=== PATIENT | female | born 1940 | race Caucasian/White ===

== ENCOUNTER 2025-02-08 15:02 | Outpatient (AMB) | payer MEDICARE, SELFPAY ==
--- NOTE | 2025-02-08 15:04 | A.OFFVIS_ITS ---
Intake Visit Reasons: ENP-Cerebrovascular Accident HPI Comments Details: The patient is an 84-year-old female presenting with a cerebrovascular accident experienced in September 2024 when she suffered a blackout followed by left-sided weakness. After admission and treatment at [facility], she underwent rehabilitation. She continues to suffer from left-sided weakness and altered sensation. Chronic back pain, exacerbated by existing compression fractures, complicates her ambulation and necessitates the use of a walker. Neurologically, the patient reports memory difficulties since the stroke, primarily involving word-finding and recalling sentences. Her memory eventually recovers with effort, and she denies significant changes in personality or incontinence. Review of Systems Narrative - Neurologic: Reports sudden vision blackout at stroke onset, left-sided weakness and sensory change, memory difficulties specifically with word retrieval and sentence recall, previous inability to use a cane for ambulation. - Musculoskeletal: Reports chronic back pain due to compression fractures, difficulty ambulating. - Genitourinary: Denies issues with bladder control. - Cognitive: Reports memory impairment since the stroke, no significant personality changes. Physical Exam Neuro Other: Mental Status: Alert and oriented to person, place, and time. Normal attention. Normal spontaneous speech, fluency, and comprehension. Cranial Nerves: CN II: Visual dean full to confrontation, visual acuity intact. CN III, IV, : Pupils equal, round, reactive to light and accommodation. Extraocular movements are normal. CN V: Facial sensation is normal. CN VII: Facial movements symmetrical. CN VIII: Hearing intact to bedside conversation is normal. CN IX, X: Palate elevates symmetrically. CN XI: Shoulder shrug and head turn symmetrical. CN XII: Tongue midline without atrophy or fasciculations. Motor: Walking with a walker. Extrapyramidal: Full facial expressions and blinking. No rigidity. Movements are appropriate with no tremor or abnormality. Speech: Normal; no dysarthria or tremor. Assessment & Plan Assessment & Plan (1) Cerebral infarction: Comment: MRI brain WO at [facility] in September 2024: Small R post limb of IC acute ischemic infarct, mild to mod chronic MVD, mod severe atrophy more pronounced in frontotemporal areas CTA brain and neck at [facility] in September 2024: R V4 occlusion, high grade left M2 and left A2 Code(s): I63.9 - Cerebral infarction, unspecified Category: Medical Qualifiers: Cerebral infarction mechanism: thrombosis Precerebral and cerebral artery: unspecified cerebral artery Qualified Code(s): I63.30 - Cerebral infarction due to thrombosis of unspecified cerebral artery (2) Intracranial atherosclerosis: Code(s): I67.2 - Cerebral atherosclerosis Category: Medical (3) Multifactorial dementia: Code(s): F03.90 - Unspecified dementia, unspecified severity, without behavioral disturbance, psychotic disturbance, mood disturbance, and anxiety Category: Medical (4) Multifactorial gait disorder: Code(s): R26.89 - Other abnormalities of gait and mobility Category: Medical Plan 84 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 Her imaging also revealed [id number] similar chronic microvascular ischemic changes bilaterally, and significant cortical atrophy more pronounced in frontotemporal areas. This kind of pathology would typically result in physical and cognitive difficulties, which she was experiencing. Mainstay of management is control of blood pressure, anti- platelet agent like baby aspirin, statin, and blood pressure control. I would noted that she was taking both aspirin 81 mg daily and clopidogrel. One of them can be stopped. She should continue to use a walker. There was no specific treatment for this type of cognitive difficulties. Typically use medicines like donepezil or memantine seem not to make any difference. 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
--- OUTSIDE RECORDS SUMMARY | 2025-02-08 16:25 | XMS_ITS | Encounter Summary ---
Author Organization [facility] Address [address] [place] [address] Care Team Providers Care Plant Security Guard Name Role Phone Nicolasa Guo MD Primary Care Provider [phone] Encounter Details Date Type Department Care Team (Late Contact Info) Description 10/19/2024 Lab Requisition [facility] - Main Lab [address] [facility] [place] [phone] Yobani Chapa MD [address] [place] [address] Weakness; Chronic obstructive pulmonary disease, unspecified (CMS/HCC V24, CMS/HCC V28) Social History Tobacco Use Types Packs/Day Years Used Date Smoking Tobacco: Every Day Smokeless Tobacco: Never Alcohol Use Standard Drinks/Week Comments No 0 (1 standard drink = 0.6 oz pur e alcohol) Interpersonal Safety Answer Date Record ed Physical Abuse Unrecognized value 10/03/2024 Verbal Abuse Unrecognized value 10/03/2024 Comments Unknown Sex and Gender Information Value Date Recorded Sex Assigned at Female 10/22/2024 9:59 AM EDT Legal Sex Female 11:59 AM EST Gender Identity Female 10/22/2024 9:59 AM EDT Sexual Orientation Straight 10/22/2024 9: 59 AM EDT documented as of this encounter Plan of Treatment Upcoming Encounters Date Type Department Care Team (Late Contact Info) Description 02/11/2025 1:30 PM EST Office Visit Internal Medicine - [place] [address] [facility] [address] [place] [address] Nicolasa Guo MD [address] [place] [phone] 04/27/2025 3:30 PM EST [facility] [address] [place] [address] Austin Johnson MD [address] [place] [address] 09/28/2025 10:15 AM EDT Office Visit [facility] Hematology Oncology [address] [place] [phone] Izabela Tam MD [address] [place] [address] 01/18/2026 10:45 AM EDT Office Visit Pulmonology - [place] [address] [facility] [address] [place] [phone] Roderick Lyman MD [address] [place] [phone] documented as of this encounter Procedures Procedure Name Priority Date/Time Associated Diagnosis Comments COMPLETE BLOOD COUNT Routine 10/19/2024 6:50 AM EDT Weakness Chronic obstructive pulmonary disease, unspecified ([facility] V24, [facility] V28) BASIC METABOLIC PANEL Routine 10/19/2024 6:50 AM EDT Weakness Chronic obstructive pulmonary disease, unspecified (CMS/HCC V24, CMS/HCC V28) documented in this encounter Results * (ABNORMAL) Basic metabolic panel (10/19/2024 6:50 AM EDT) Sodium 139 133 - 145 mmol/L LAB CHEMISTRY METHOD 10/19/2024 4:41 PM EDT [facility] Potassium 3.0(L) 3.5 - 5.5 mmol/L LAB CHEMISTRY METHOD 10/19/2024 4:41 PM [facility] Chloride 104 96 - 110 mmol/L LAB CHEMISTRY METHOD 10/19/2024 4:41 PM [facility] CO2 27 21 - 32 mmol/L LAB CHEMISTRY METHOD 10/19/2024 4:41 PM [facility] Anion Gap 8 3 - 11 LAB CHEMISTRY METHOD 10/19/2024 4:41 PM [facility] Glucose 73 70 - 100 mg/dL LAB CHEMISTRY METHOD 10/19/2024 4:41 PM [facility] BUN 20 5 - 25 mg/dL LAB CHEMISTRY METHOD 10/19/2024 4:41 PM [facility] Creatinine 0.53 0.50 - 1.10 mg/dL LAB CHEMISTRY METHOD 10/19/2024 4:41 PM [facility] eGFR 91 >=60 mL/min/1. 73m2 LAB CHEMISTRY METHOD 10/19/2024 4:41 PM [facility] Comment:Calculation based on the Chronic Kidney Disease Epidemiology Collaboration (CKD-EPI) equation refit without adjustment for race. BUN/Creatinine Ratio 37.7 LAB CHEMISTRY METHOD 10/19/2024 4:41 PM [facility] Calcium 8.6 8.5 - 10.5 mg/dL LAB CHEMISTRY METHOD 10/19/2024 4:41 PM [facility] Blood Venous blood specimen / Unknown Venipuncture / Unknown 10/19/2024 6:50 AM EDT 10/19/2024 10:14 AM EDT us Yobani Chapa MD LAB BLOOD ORDERABLES Final Resul t [facility] [address] [place] [address], [place] [phone] * (ABNORMAL) Complete blood count (10/19/2024 6:50 AM EDT) [facility] WBC 9.7 4.8 - 10.8 K/mcL LAB HEMETOLOGY METHOD 10/[facility]24 [facility] RBC 3.60(L) 3.80 - 4.80 M/mcL LAB HEMETOLOGY METHOD 10/19/2024 10:54 AM EDT [facility] Hemoglobin 11.3(L) 11.5 - 16.0 g/dL LAB HEMETOLOGY METHOD 10/19/2024 10:54 AM [facility] Hematocrit 34.1(L) 35.0 - 47.0 % LAB HEMETOLOGY METHOD 10/19/2024 10:54 AM [facility] MCV 94.2 79.0 - 98.0 FL LAB HEMETOLOGY METHOD 10/19/2024 10:[facility] MCH 31.2 27.0 - 32.0 pcg LAB HEMETOLOGY METHOD 10/19/2024 10:54 AM [facility] MCHC 33.1 32.0 - 37.0 g/dL LAB HEMETOLOGY METHOD 10/19/2024 10:54 AM [facility] RDW 12.3 11.0 - 15.0 % LAB HEMETOLOGY METHOD 10/19/2024 10:54 AM [facility] Platelets 353 130 - 400 K/mcL LAB HEMETOLOGY METHOD 10/19/2024 10:54 AM T [facility] MPV 9.1 7.0 - 11.0 FL LAB HEMETOLOGY METHOD 10/19/2024 10:54 [facility] NRBC 0.0 <1.0 % LAB HEMETOLOGY METHOD 10/19/2024 10:54 AM EDT [facility] NRBC Absolute 0.00 <0.10 K/mcL LAB HEMETOLOGY METHOD 10/19/2024 10:54 AM EDT [facility] Blood Venous blood specimen / Unknown Venipuncture / Unknown 10/19/2024 6:50 AM EDT 10/19/2024 10:14 AM EDT us Yobani Chapa MD LAB BLOOD ORDERABLES Final Resul t [facility] [address] [place] [address], documented in this encounter Visit Diagnoses Diagnosis Weakness Other malaise and fatigue Chronic obstructive pulmonary disease, unspecified (CMS/HCC V24, CMS/HCC V28) documented in this encounter Care Teams Plant Security Guard Relationship Specialty Start Date End Date Nicolasa Guo MD [address] [place] [phone] PCP - General 08/14/23 documented as of this encounter
--- OUTSIDE RECORDS SUMMARY | 2025-02-08 16:25 | XMS_ITS | Encounter Summary ---
Author Organization [facility] Address [address] [place] [address] Care Team Providers Care Location Worker Name Role Phone Nicolasa Guo MD Primary Care Provider [phone] Encounter Details Date Type Department Care Team (Late Contact Info) Description 10/21/2024 Lab Requisition [facility] - Main Lab [address] [facility] [place] [address] Yobani Chapa MD [address] [facility] [address] [place], [place] [id number] Hypokalemia Social History Tobacco Use Types Packs/Day Years [...] PM EST Office Visit Internal Medicine - [place] [address] [facility] [address] [place] [phone] Nicolasa Guo MD [address] [place] [phone] 04/27/2025 3:30 PM EST Consult Nephrology - [facility] [address] [place] [address] Austin Johnson MD [address] [place] [phone] 09/28/2025 10:15 AM EDT Office Visit [facility] Hematology Oncology [address] [place] [phone] Izabela Tam MD [address] [place], [place] [phone] 01/18/2026 10:45 AM EDT Office Visit Pulmonology - [place] 175 [facility] 200 [place] [phone] Roderick Lyman MD [address] [place] [phone] documented as of this encounter Procedures Procedure Name Priority Date/Time Associated Diagnosis Comments BASIC METABOLIC PANEL Routine 10/21/2024 7:56 AM EDT Hypokalemia documented in this encounter Results * (ABNORMAL) Basic metabolic panel (10/21/2024 7:56 AM EDT) Sodium 139 133 - 145 mmol/L LAB CHEMISTRY METHOD 10/21/2024 11:50 AM EDT [facility] Potassium 3.4(L) 3.5 - 5.5 mmol/L LAB CHEMISTRY METHOD 10/21/2024 11:50 AM EDT [facility] Chloride 104 96 - 110 mmol/L LAB CHEMISTRY METHOD 10/21/2024 11:50 AM EDT [facility] CO2 22 21 - 32 mmol/L LAB CHEMISTRY METHOD 10/21/2024 11:50 AM [facility] Anion Gap 13(H) 3 - 11 LAB CHEMISTRY METHOD 10/21/2024 11:50 AM [facility] Glucose 74 70 - 100 mg/dL LAB CHEMISTRY METHOD 10/21/2024 11:50 AM [facility] BUN 14 5 - 25 mg/dL LAB CHEMISTRY METHOD 10/21/2024 11:50 AM [facility] Creatinine 0.63 0.50 - 1.10 mg/dL LAB CHEMISTRY METHOD 10/21/2024 11:50 AM [facility] eGFR 87 >=60 mL/min/1. 73m2 LAB CHEMISTRY METHOD 10/21/2024 11:50 AM [facility] Comment:Calculation based on the Chronic Kidney Disease Epidemiology Collaboration (CKD-EPI) equation refit without adjustment for race. BUN/Creatinine Ratio 22.2 LAB CHEMISTRY METHOD 10/21/2024 11:50 AM [facility] Calcium 9.2 8.5 - 10.5 mg/dL LAB CHEMISTRY METHOD 10/21/2024 11:50 AM [facility] Blood Venous blood specimen / Unknown Venipuncture / Unknown 10/21/2024 7:56 AM EDT 10/21/2024 9:31 AM EDT us Yobani Chapa MD LAB BLOOD ORDERABLES Final Resul t [facility] [address] [place] [address], documented in this encounter Visit Diagnoses Diagnosis Hypokalemia Hypopotassemia documented in this encounter Care Teams Location Worker Relationship Specialty Start Date End Date Nicolasa Guo MD [address] [facility] [address] [place] [phone] PCP - General 08/14/23 documented as of this encounter
--- OUTSIDE RECORDS SUMMARY | 2025-02-08 16:25 | XMS_ITS | Encounter Summary ---
Author Organization [facility] Address [address] [place] [address] Care Team Providers Care Register Of Deeds Name Role Phone Nicolasa Guo MD Primary Care Provider [phone] Encounter Details Date Type Department Care Team (Late Contact Info) Description 10/25/2024 Lab Requisition [facility] - Main Lab [address] [facility] [place] [phone] Yobani Chapa MD [address] [place] [address] Weakness; Chronic obstructive pulmonary disease, unspecified (CMS/HCC [...] PM EST Office Visit Internal Medicine - [place] [address] [facility] [address] [place] [address] Nicolasa Guo MD [address] [place] [phone] 04/27/2025 3:30 PM EST Consult Nephrology - [facility] [address] [place] [address] Austin Johnson MD [address] [facility] [address] [place] [address] 09/28/2025 10:15 AM EDT Office Visit [facility] Hematology Oncology [address] [place] [address] Izabela Tam MD [address] [place] [address] 01/18/2026 10:45 AM EDT Office Visit Pulmonology - [place] [address] [phone] Roderick Lyman MD [address] [place] [phone] documented as of this encounter Procedures Procedure Name Priority Date/Time Associated Diagnosis Comments COMPLETE BLOOD COUNT Routine 10/26/2024 6:59 AM EDT Weakness Chronic obstructive pulmonary disease, unspecified (CMS/HCC V24, CMS/HCC V28) COMPREHENSIVE METABOLIC PANEL Routine 10/26/2024 6:59 AM EDT Weakness Chronic obstructive pulmonary disease, unspecified (CMS/HCC V24, CMS/HCC V28) BASIC METABOLIC PANEL Routine 10/26/2024 6:59 AM EDT Weakness Chronic obstructive pulmonary disease, unspecified (CMS/HCC V24, CMS/HCC V28) documented in this encounter Results * (ABNORMAL) Comprehensive metabolic panel (10/26/2024 6:59 AM EDT) Sodium 138 133 - 145 mmol/L LAB CHEMISTRY METHOD 10/26/2024 12:04 PM [facility] Potassium 3.2(L) 3.5 - 5.5 mmol/L LAB CHEMISTRY METHOD 10/26/2024 12:04 PM [facility] Chloride 103 96 - 110 mmol/L LAB CHEMISTRY METHOD 10/26/2024 12:04 PM [facility] CO2 27 21 - 32 mmol/L LAB CHEMISTRY METHOD 10/26/2024 12:04 PM [facility] Anion Gap 8 3 - 11 LAB CHEMISTRY METHOD 10/26/2024 12:04 PM [facility] Glucose 78 70 - 100 mg/dL LAB CHEMISTRY METHOD 10/26/2024 12:04 PM [facility] BUN 12 5 - 25 mg/dL LAB CHEMISTRY METHOD 10/26/2024 12:04 PM [facility] Creatinine 0.68 0.50 - 1.10 mg/dL LAB CHEMISTRY METHOD 10/26/2024 12:04 PM [facility] eGFR 85 >=60 mL/min/1. 73m2 LAB CHEMISTRY METHOD 10/26/2024 12:04 PM [facility] Comment:Calculation based on the Chronic Kidney Disease Epidemiology Collaboration (CKD-EPI) equation refit without adjustment for race. BUN/Creatinine Ratio 17.6 LAB CHEMISTRY METHOD 10/26/2024 12:04 PM [facility] Calcium 8.8 8.5 - 10.5 mg/dL LAB CHEMISTRY METHOD 10/26/2024 12:04 PM [facility] AST (SGOT) 15 10 - 42 unit/L LAB CHEMISTRY METHOD 10/26/2024 12:04 PM [facility] ALT (SGPT) 17 10 - 60 unit/L LAB CHEMISTRY METHOD 10/26/2024 12:04 PM EDT [facility] Alkaline Phosphatase 121 42 - 121 unit/L LAB CHEMISTRY METHOD 10/26/2024 12:04 PM T [facility] Total Protein 6.3 6.0 - 8.0 g/dL LAB CHEMISTRY METHOD 10/26/2024 12:04 PM [facility] Albumin 3.7 3.2 - 5.0 g/dL LAB CHEMISTRY METHOD 10/26/2024 12:04 PM [facility] Total Bilirubin 0.6 0.0 - 1.4 mg/dL LAB CHEMISTRY METHOD 10/26/2024 12:04 PM [facility] Blood Venous blood specimen / Unknown Venipuncture / Unknown 10/26/2024 6:59 AM EDT 10/26/2024 9:56 AM EDT us Yobani Chapa MD LAB BLOOD ORDERABLES Final Resul t [facility] [address] [place] [address], * Complete blood count (10/26/2024 6:59 AM EDT) WBC 8.2 4.8 - 10.8 K/mcL LAB HEMETOLOGY METHOD 10/26/2024 10:40 AM EDT [facility] RBC 3.80 3.80 - 4.80 M/mcL LAB HEMETOLOGY METHOD 10/26/2024 10:40 AM T [facility] Hemoglobin 11.8 11.5 - 16.0 g/dL LAB HEMETOLOGY METHOD 10/26/2024 10:40 AM [facility] Hematocrit 36.0 35.0 - 47.0 % LAB HEMETOLOGY METHOD 10/26/2024 10:40 AM EDT [facility] MCV 94.2 79.0 - 98.0 FL LAB HEMETOLOGY METHOD 10/26/2024 10:40 AM EDT [facility] MCH 30.9 27.0 - 32.0 pcg LAB HEMETOLOGY METHOD 10/26/2024 10:40 AM EDT [facility] MCHC 32.8 32.0 - 37.0 g/dL LAB HEMETOLOGY METHOD 10/26/2024 10:40 AM EDT [facility] RDW 13.1 11.0 - 15.0 % LAB HEMETOLOGY METHOD 10/26/2024 10:40 AM EDT [facility] Platelets 314 130 - 400 K/mcL LAB HEMETOLOGY METHOD 10/26/2024 10:40 AM EDT [facility] MPV 9.5 7.0 - 11.0 FL LAB HEMETOLOGY METHOD 10/26/2024 10:40 AM EDT [facility] NRBC 0.0 <1.0 % LAB HEMETOLOGY METHOD 10/26/2024 10:40 AM EDT [facility] NRBC Absolute 0.00 <0.10 K/mcL LAB HEMETOLOGY METHOD 10/26/2024 10:40 AM T [facility] Blood Venous blood specimen / Unknown Venipuncture / Unknown 10/26/2024 6:59 AM EDT 10/26/2024 9:57 AM EDT us Yobani Chapa MD LAB BLOOD ORDERABLES Final Resul t [facility] [address] [place] [address], * (ABNORMAL) Basic metabolic panel (10/26/2024 6:59 AM EDT) Sodium 138 133 - 145 mmol/L LAB CHEMISTRY METHOD 10/26/2024 12:04 PM EDT [facility] Potassium 3.2(L) 3.5 - 5.5 mmol/L LAB CHEMISTRY METHOD 10/26/2024 12:04 PM [facility] Chloride 103 96 - 110 mmol/L LAB CHEMISTRY METHOD 10/26/2024 12:04 PM [facility] CO2 27 21 - 32 mmol/L LAB CHEMISTRY METHOD 10/26/2024 12:04 PM [facility] Anion Gap 8 3 - 11 LAB CHEMISTRY METHOD 10/26/2024 12:04 PM [facility] Glucose 78 70 - 100 mg/dL LAB CHEMISTRY METHOD 10/26/2024 12:04 PM [facility] BUN 12 5 - 25 mg/dL LAB CHEMISTRY METHOD 10/26/2024 12:04 PM [facility] Creatinine 0.68 0.50 - 1.10 mg/dL LAB CHEMISTRY METHOD 10/26/2024 12:04 PM [facility] eGFR 85 >=60 mL/min/1. 73m2 LAB CHEMISTRY METHOD 10/26/2024 12:04 PM [facility] Comment: Calculation based on the Chronic Kidney Disease Epidemiology Collaboration (CKD- EPI) equation refit without adjustment for race. Calculation based on the Chronic Kidney Disease Epidemiology Collaboration (CKD- EPI) equation refit without adjustment for race. BUN/Creatinine Ratio 17.6 LAB CHEMISTRY METHOD 10/26/2024 12:04 PM [facility] Calcium 8.8 8.5 - 10.5 mg/dL LAB CHEMISTRY METHOD 10/26/2024 12:04 PM [facility] Blood Venous blood specimen / Unknown Venipuncture / Unknown 10/26/2024 6:59 AM EDT 10/26/2024 9:56 AM EDT us Yobani Chapa MD LAB BLOOD ORDERABLES Final Resul t [facility] [address] [place] [address], documented in this encounter Visit Diagnoses Diagnosis Weakness Other malaise and fatigue Chronic obstructive pulmonary disease, unspecified (CMS/HCC V24, CMS/HCC V28) documented in this encounter Care Teams Register Of Deeds Relationship Specialty Start Date End Date Nicolasa Guo MD [address] [place] [address] [address] [place] [address] PCP - General 08/14/23 documented as of this encounter
--- OUTSIDE RECORDS SUMMARY | 2025-02-08 16:25 | XMS_ITS | Encounter Summary ---
Author Organization [facility] Address [address] [place] [address] Care Team Providers Care Winter Intern Name Role Phone Nicolasa Guo MD Primary Care Provider [phone] Reason for Referral * Consultation (Routine) - Authorized Specialty Diagnoses / Procedures Referred By Contac t Referred To Contact Pulmonary Disease / Pulmonology Diagnoses Emphysema of lung ([facility] V24, [facility] V28) Nicolasa Guo MD [address] [phone] Phone: tel: fax: Roderick Lyman MD [address] [address] Phone: tel: fax: Referral ID Status Reason Start Date Expiration Date Visits Requested Visits Authorized [id number] Authorized Specialty Services Required 01/12/2025 01/12/2026 12 12 Reason for Visit * Reason Onset Date Comments Referral 01/12/2025 Encounter Details Date Type Department Care Team ([facility] Contact Info) Description 01/12/2025 Telephone Internal Medicine - [place] 175 [facility] [address] [place] [address] Nicolasa Guo MD [address] [place] [phone] Social History Tobacco Use Types Packs/Day Years [...] Encounters Date Type Department Care Team (Late st Contact Info) Description 02/11/2025 1:30 PM EST Office Visit Internal Medicine [facility] [address] [phone] Nicolasa Guo MD 230 [place] [phone] 04/27/2025 3:30 PM EST [facility] [address] [place] [address] Austin Johnson MD [address] [facility] [address] [place] [address] 09/28/2025 10:15 AM EDT Office Visit [facility] Hematology Oncology [address] [place] [phone] Izabela Tam MD [address] [place] [address] 01/18/2026 10:45 AM EDT Office Visit Pulmonology - [place] [address] [phone] Roderick Lyman MD [address] [place] [phone] Scheduled Referrals Name Type Priority Associated Diagnoses Order Schedule Ambulatory referral to Pulmonology Outpatient Referral Routine Emphysema of lung ([facility] V24, [facility] V28) Expected: 01/12/2025, Expires: 01/12/2026 documented as of this encounter Visit Diagnoses Diagnosis Emphysema of lung ([facility] V24, [facility] V28)- Primary Other emphysema documented in this encounter Care Teams Winter Intern Relationship Specialty Start Date End Date Nicolasa Guo MD [address] [place] [phone] PCP - General 08/14/23 documented as of this encounter
--- OUTSIDE RECORDS SUMMARY | 2025-02-08 16:25 | XMS_ITS | Clinical Summary ---
Author Organization [facility] Address [address] [place] [address] Care Team Providers Care Butting Saw Operator Name Role Phone Unavailable Primary Care Provider Unavailabl e Allergies Active Allergy Reactions Criticality Noted Date Comments Lisinopril Other (See Comments) 10/21/2017 Medications Medication Sig Dispensed Refills Start Date End Date Status amLODIPine (NORVASC) tablet 5 mg Take 5 mg by mouth daily. 0 Active losartan (COZAAR) tablet 50 mg Take 50 mg by mouth daily. 0 Active simvastatin (ZOCOR) tablet 10 mg Take 10 mg by mouth every night at bedtime. 0 Active Fluticasone-Umeclidin -Vilant (Trelegy Ellipta) 100-62.5-25 MCG/INH AEPB Inhale into the lungs. 0 Active famotidine (PEPCID) 40 MG tablet Take 40 mg by mouth daily. 0 Active omeprazole (PriLOSEC) 20 MG capsule Take 40 mg by mouth daily. 0 Active furosemide (Lasix) 20 MG tablet Take 20 mg by mouth 2 (two) times a day. 0 Active ipratropium (ATROVENT HFA) 17 MCG/ACT inhaler Inhale 2 puffs into the lungs every 6 (six) hours. 0 Active nitroglycerin (NITROSTAT) 0.[address] 0.4 mg under the tongue every 5 (five) minutes as needed for chest pain. 0 Active acetaminophen (TYLENOL) 500 MG tablet Take by mouth every 6 (six) hours as needed. 0 Active meloxicam (MOBIC) 7.5 MG tablet TAKE 1 TABLET(7.5 MG) BY MOUTH DAILY NEEDED FOR PAIN 30 tablet 0 10/05/2021 Active Active Problems Problem Noted Date Diagnosed Date Lab test negative for COVID-19 virus 05/16/2020 Venous insufficiency 04/12/2020 Cellulitis of calf 04/07/2020 Localized edema 04/07/2020 Overview: Last Assessment & Plan: She tells me she recently had a quick weight gain and BLE swelling. Her PCP office evaluated this and she is have LE US completed. I think it would be a good idea also to get an Echo to check her heart function. She tells me her weight of 165 pounds is back to her baseline. She has very slightly swelling to her right leg but tells me its normal for her. GERD with esophagitis 10/21/2017 Hiatal hernia 10/21/2017 COPD (chronic obstructive pulmonary disease) Hyperlipidemia 08/27/2017 Overview: Last Assessment & Plan: Last lipid panel 04/28 total cholesterol 189, HDL 66, LDL 99. Continue statin. Hypertension 08/27/2017 Overview: Last Assessment & Plan: Elevated today but this reading is prior to her medications. She tells me it is usually less than 140 systolically. She understands to call if she notices consistently elevated readings Lung nodule 09/25/2016 Anxiety 09/20/2016 Macular degeneration 09/20/2016 Vitamin D deficiency 09/20/2016 Microcalcifications of the breast 12/28/2015 Immunizations Name Administration Dates Next Due Pneumococcal Conjugate PCV13 06/22/2014 Pneumococcal Polysaccharide PPSV23 05/20/2019 Tdap 03/16/2010 Family History Medical History Relation Name Comments Cancer Father stomach Heart disease Mother Relation Name Status Comments Father Mother Social History Tobacco Use Types Packs/Day Years Used Date Smoking Tobacco: Every Day Cigarettes 1 65 Smokeless Tobacco: Never Tobacco Cessation:Ready to Q uit: No Alcohol Use Standard Drinks/Week Comments Not Currently 0 (1 standard drink = 0.6 oz pur e alcohol) Sex and Gender Information Value Date Recorded Sex Assigned at Not on file Gender Identity Not on file Sexual Orientation Not on file Job Start Date Occupation Industry Not on file Not on file Not on file Last Filed Vital Signs Vital Sign Reading Time Taken Comments Blood Pressure 167/89 07/13/2021 8:39 AM EDT Pulse 73 07/13/2021 8:39 AM EDT Temperature 36.5 C (97.7 F) 07/13/2021 8:39 AM EDT Respiratory Rate - - Oxygen Saturation 98% 07/13/2021 8:39 AM EDT Inhaled Oxygen Concentration - - Weight 71.7 kg (158 lb) 07/10/2021 12:59 PM EDT Height 154.9 cm (5' 1 ) 07/10/2021 12:59 PM EDT Body Mass Index 29.85 07/10/2021 12:59 PM EDT Plan of Treatment Health Maintenance Due Date Last Done Comments Depression Screening 1950 Preventative Health Evaluation 1956 Shingrix-Zoster Vaccine (1 o f 2) 1988 Fall Risk Assessment 12/02/2003 Osteoporosis Screening (DEXA Scan) 12/02/2003 RSV Adult > 60+ Yrs or (1 - 1-dose 75+ series) 2013 DTap / Tdap / Td (2 - Td or Tdap) 03/16/2020 03/16/2010 COVID-19 Vaccine (3 - 2024-2 6 season) 2024 06/07/2020, 05/15/2020 Influenza Vaccine (#1) 2024 Pneumococcal Vaccine Completed 05/20/2019, 06/22/2014 Hepatitis B Vaccines Aged Out No long er eligible based on patient's age to complete this topic RSV Ped < 20 months Aged Out No longe r eligible based on patient's age to complete this topic [employer] [id number] Toyin Tripathi Personal/Family Self [address] [place] [phone]
--- OUTSIDE RECORDS SUMMARY | 2025-02-08 16:25 | XMS_ITS | Encounter Summary ---
Author Organization [facility] Address [address] [place] [address] Care Team Providers Care Beater Engineer Helper Name Role Phone Nicolasa Guo MD Primary Care Provider Encounter Details Date Type Department Care Team (Late Contact Info) Description 10/31/[address] [facility] - Main Lab [address] [facility] [place] [phone] Yobani Chapa MD [address] [place] [address] Weakness; Chronic obstructive pulmonary disease, unspecified (CMS/HCC [...] PM EST Office Visit Internal Medicine - [place] 175 [facility] 200 [place] [address] Nicolasa Guo MD [address] [place] [phone] 04/27/2025 3:30 PM EST Consult Nephrology - [facility] [address] [place] [phone] Austin Johnson MD [address] [place] [address] 09/28/2025 10:15 AM EDT Office Visit [facility] Hematology Oncology [address] [place] [phone] Izabela Tam MD [address] [place] [address] 01/18/2026 10:45 AM EDT Office Visit Pulmonology - [place] [address] [phone] Roderick Lyman MD [address] [place] [phone] documented as of this encounter Procedures Procedure Name Priority Date/Time Associated Diagnosis Comments COMPLETE BLOOD COUNT Routine 11/02/2024 6:28 AM EDT Weakness Chronic obstructive pulmonary disease, unspecified ([facility]/HCC V24, [facility] V28) BASIC METABOLIC PANEL Routine 11/02/2024 6:28 AM EDT Weakness Chronic obstructive pulmonary disease, unspecified (CMS/HCC V24, CMS/[facility] V28) documented in this encounter Results * (ABNORMAL) Complete blood count (11/02/2024 6:28 AM EDT) WBC 7.4 4.8 - 10.8 K/[facility] LAB HEMETOLOGY METHOD 11/02/2024 10:24 AM [facility] RBC 3.40(L) 3.80 - 4.80 M/mcL LAB HEMETOLOGY METHOD 11/02/2024 10:24 AM [facility] Hemoglobin 10.6(L) 11.5 - 16.0 g/dL LAB HEMETOLOGY METHOD 11/02/2024 10:24 AM [facility] Hematocrit 32.6(L) 35.0 - 47.0 % LAB HEMETOLOGY METHOD 11/02/2024 10:24 AM [facility] MCV 95.3 79.0 - 98.0 FL LAB HEMETOLOGY METHOD 11/02/2024 10:24 AM [facility] MCH 31.0 27.0 - 32.0 pcg LAB HEMETOLOGY METHOD 11/02/2024 10:24 AM [facility] MCHC 32.5 32.0 - 37.0 g/dL LAB HEMETOLOGY METHOD 11/02/2024 10:24 AM [facility] RDW 13.3 11.0 - 15.0 % LAB HEMETOLOGY METHOD 11/02/2024 10:24 AM [facility] Platelets 222 130 - 400 K/mcL LAB HEMETOLOGY METHOD 11/02/2024 10:24 AM [facility] MPV 9.5 7.0 - 11.0 FL LAB HEMETOLOGY METHOD 11/02/2024 10:24 AM [facility] NRBC 0.0 <1.0 % LAB HEMETOLOGY METHOD 11/02/2024 10:24 AM [facility] NRBC Absolute 0.00 <0.10 K/mcL LAB HEMETOLOGY METHOD 11/02/2024 10:24 AM [facility] Blood Venous blood specimen / Unknown Venipuncture / Unknown 11/02/2024 6:28 AM EDT 11/02/2024 9:55 AM EDT us Yobani Chapa MD LAB BLOOD ORDERABLES Final Resul t [facility] [address] [place] [address], [place] [phone] * (ABNORMAL) Basic metabolic panel (11/02/2024 6:28 AM EDT) Sodium 141 133 - 145 mmol/L LAB CHEMISTRY METHOD 11/02/2024 11:11 AM [facility] Potassium 2.5(LL) 3.5 - 5.5 mmol/L LAB CHEMISTRY METHOD 11/02/2024 11:11 AM [facility] Chloride 104 96 - 110 mmol/L LAB CHEMISTRY METHOD 11/02/2024 11:11 AM [facility] CO2 29 21 - 32 mmol/L LAB CHEMISTRY METHOD 11/02/2024 11:11 AM [facility] Anion Gap 8 3 - 11 LAB CHEMISTRY METHOD 11/02/2024 11:11 AM [facility] Glucose 75 70 - 100 mg/dL LAB CHEMISTRY METHOD 11/02/2024 11:11 AM [facility] BUN 15 5 - 25 mg/dL LAB CHEMISTRY METHOD 11/02/2024 11:11 AM [facility] Creatinine 0.54 0.50 - 1.10 mg/dL LAB CHEMISTRY METHOD 11/02/2024 11:11 AM [facility] eGFR 90 >=60 mL/min/1. 73m2 LAB CHEMISTRY METHOD 11/02/2024 11:11 AM [facility] Comment:Calculation based on the Chronic Kidney Disease Epidemiology Collaboration (CKD-EPI) equation refit without adjustment for race. BUN/Creatinine Ratio 27.8 LAB CHEMISTRY METHOD 11/02/2024 11:[address] [facility] Calcium 8.7 8.5 - 10.5 mg/dL LAB CHEMISTRY METHOD 11/02/2024 11:[address] [facility] Blood Venous blood specimen / Unknown Venipuncture / Unknown 11/02/2024 6:28 AM EDT 11/02/2024 9:53 AM EDT us Yobani Chapa MD LAB BLOOD ORDERABLES Final Resul t [facility] [address] [place] [address], documented in this encounter Visit Diagnoses Diagnosis Weakness Other malaise and fatigue Chronic obstructive pulmonary disease, unspecified (CMS/HCC V24, CMS/HCC V28) documented in this encounter Care Teams Beater Engineer Helper Relationship Specialty Start Date End Date Nicolasa Guo MD [address] [place] [phone] PCP - General 08/14/23 documented as of this encounter
--- OUTSIDE RECORDS SUMMARY | 2025-02-08 16:26 | XMS_ITS | Clinical Summary ---
Author Organization [facility] Address [address] [place] [address] Phone Care Team Providers Care Heel Wheeler Name Role Phone Izabella Wong ISMA Unavailable Kathy Mendoza MD Unavailable Rubin Stanton MD Unavailable Lorenzo Jimenez MD Unavailable Nicolasa Guo MD Primary Care Provider Allergies Active Allergy Reactions Criticality Noted Date Comments Lisinopril Cough,Other (See Comments) 8 Oxycodone Nausea and/or Vomiting 12/25/2024 Dizziness Topiramate Other (See Comments) 04/12/2009 nausea Medications albuterol 90 mcg/actuation inhaler Inhale 2 puffs into the lungs. 5 07/11/19 26 Active amLODIPine (NORVASC) 10 MG tablet Take 10 mg by mouth. 5 12/29/19 26 Active aspirin 81 MG EC tablet 81 mg. Active atorvastatin (LIPITOR) 80 MG tablet Take 80 mg by mouth. 5 10/13/19 26 Active blood-glucose Misc meter Use daily or as directed for monitoring of diabetes. 5 05/15/19 26 Active cholecalciferol (VITAMIN D3) 2,000 unit tablet Take 2,000 Units by mouth daily. 4 Active clopidogrel (PLAVIX) 75 mg tablet Take 75 mg by mouth. 5 10/13/19 26 Active diclofenac sodium (VOLTAREN) 1 % Gel Apply 2 g topically. 5 05/10/19 26 Active ferrous sulfate 325 mg (65 mg [place] iron) EC tablet Take 325 mg by mouth. 5 11/12/19 26 Active famotidine (PEPCID) 40 MG tablet Take 40 mg by mouth daily. Active fluticasone-ume clidin-vilanter (TRELEGY ELLIPTA) 100-62.5-25 mcg inhalation powder Inhale 100 mcg into the lungs. Active furosemide (LASIX) 20 MG tablet Take 20 mg by mouth. Active losartan (COZAAR) 50 MG tablet Take 50 mg by mouth. 5 Active magnesium oxide (MAG-OX) 400 mg (241.3 mg elemental) tablet Take 400 mg by mouth. 5 05/10/19 26 Active meclizine (ANTIVERT) 12.5 mg tablet Take 12.5 mg by mouth 3 (three) times a day as needed. 5 05/10/19 26 Active potassium chloride (K-TAB) 20 mEq TbER ER tablet Take 1 tablet by mouth every morning. 5 Active gabapentin (NEURONTIN) 100 MG capsule Take 100 mg by mouth 3 (three) times a day. Active acetaminophen (TYLENOL) 500 MG tablet Take 500 mg by mouth every 6 (six) hours as needed for pain (specific location in comments). Active pantoprazole (PROTONIX) 40 MG tablet Take 40 mg by mouth daily. Active Active Problems Problem Noted Date Diagnosed Date Uncoded [place] Anxiety 10/25/2011 Overview (05/29/2014): [place] Anxiety; 04/02/2011. He at home suddenly, patient is greiving. Expressing guilt over his . Vertigo 01/31/2010 Overview (05/29/2014): Vertigo Vitamin D deficiency 01/13/2010 Overview (05/29/2014): Vitamin D deficiency; Pre treatment level 15 ng/ml Osteoporosis 08/26/2009 Overview (05/29/2014): Osteoporosis Smoker 04/12/2009 Overview (05/29/2014): Smoker; 100 pack years. Failed Chantix due to nausea and nightmares. Chronic obstructive pulmonary disease 04/12/2009 Overview (05/29/2014): Chronic obstructive lung disease Hypertensive disorder 04/12/2009 Overview (05/29/2014): Hypertension Hyperlipidemia 04/12/2009 Overview (05/29/2014): Hyperlipidemia Migraine 04/12/2009 Overview (05/29/2014): Migraine Gastroesophageal reflux disease 04/12/2009 Overview (05/29/2014): Gastroesophageal reflux disease; 2004: EGD done by Nam Aldridge showed esophagitis. Encounters Date Type Department Care Team Description 01/11/2025 10:20 AM EDT Office Visit [facility] [address] [place] [address] [place] [address] Maren Rowley MD Adnexal gregory (Primary Dx) 01/11/2025 9:06 AM EDT - 01/11/2025 11:59 PM EDT Hospital Encounter [facility] [address] [place] [address] Maren Rowley MD Discharge Disposition: Home or Self Care 12/25/2024 12:04 PM EDT - 12/25/2024 11:59 PM EDT Hospital Encounter [facility] [address] [place] [address] Maren Rowley MD Discharge Disposition: Home or Self Care 12/25/2024 11:20 AM EDT Office Visit [facility] [address] [place] [address] [place] [address] Halley, Maren M, MD Adnexal mass (Primary Dx) from Last 3 Months Immunizations Immunization Administration Dates Next Due [id number] FORMULATION 04/13/2009 Influenza, Unspecified Formulation 01/13/2010, Pneumococcal polysaccharide PPSV23 01/13/2010 Tdap 03/16/2010 Family History Medical History Relation Comments Uncoded Family History Brother 2 stomach c ancer Depression Father depression Uncoded Family History Father stomach c ancer/substance abuse; ETOH Coronary artery disease Mother coronary artery disease ; Multiple IA in her 70s. age 86 Uncoded Family History Mother elevated cholesterol Relation Status Comments Brother 1 Brother 2 Father Mother Social History Tobacco Use Types Packs/Day Years Used Date Smoking Tobacco: Every Day Cigarettes Smokeless Tobacco: Never Tobacco Cessation:Ready to Q uit: No; Counseling Given: Not Answered Alcohol Use Standard Drinks/Week Comments Not Currently 0 (1 standard drink = 0.6 oz pur e alcohol) Education Answer Date Recorded Are you interested in more education? Not on anna e 12/21/2024 Are you concerned about learning? Not on file 12/21/2024 No 12/21/2024 No 12/21/2024 Digital Access Answer Date Recorded No 12/21/2024 No 12/21/2024 Reliable internet access at home? Not on file 12/21/2024 Device with a working camera? Not on file Comments No Sex and Gender Information Value Date Recorded Sex Assigned at Female 01/05/2025 8:45 AM EDT Legal Sex Female 10:13 PM EDT Gender Identity Female 01/05/2025 8:45 AM EDT Sexual Orientation Straight 01/05/2025 8: 45 AM EDT Last Filed Vital Signs Vital Sign Reading Time Taken Comments Blood Pressure 116/66 01/11/2025 9:41 AM EDT Pulse 59 08/20/2014 9:43 AM EDT Temperature 36.7 C (98.1 F) 12/28/2011 11:50 AM EDT Respiratory Rate 18 11/27/2011 11:03 AM EDT Oxygen Saturation - - Inhaled Oxygen Concentration - - Weight 65.8 kg (145 lb) 12/25/2024 11:34 AM EDT Height 152.4 cm (5') 12/25/2024 11:34 AM EDT Body Mass Index 28.32 12/25/2024 11:34 AM EDT Plan of Treatment Health Maintenance Due Date Last Done Comments DEPRESSION SCREENING 1950 ZOSTER VACCINES (1 of 2) 1988 OSTEOPOROSIS SCREENING INITIAL (ONE-TIME) 12/02/2003 CREATININE LEVEL 10/03/2012 10/04/2011, 06/2010, 03/16/2010 POTASSIUM LEVEL 10/03/2012 10/04/2011, 05/0 06/2010, 03/16/2010 RSV VACCINE (1 - 1-dose 75+ series) 2013 INFLUENZA VACCINE (#1) 2024 , 02/04/2022, 01/19/2020, Additional history exists COVID-19 VACCINE ( season) 2024 08/17/2021, 02/09/2021, 06/07/2020, Additional history exists Adult Td,Tdap Booster 07/03/2032 07/03/2022, 010 PNEUMOCOCCAL VACCINES (50+ years) Completed 05/20/2019, 06/22/2014, 01/13/2010 HEPATITIS A VACCINES Aged Out No long er eligible based on patient's age to complete this topic HIB VACCINES Aged Out No longer eligi ble based on patient's age to complete this topic MENINGOCOCCAL VACCINES (ACWY) Aged Out No longer eligible based on patient's age to complete this topic MENINGOCOCCAL VACCINES (B) Aged Out N o longer eligible based on patient's age to complete this topic Medical Devices Not on file Procedures Procedure Name Priority Date/Time Associated Diagnosis Comments US PELVIS TRANSABDOMINAL PLUS TRANSVAGINAL Routine 01/11/2025 9:38 AM EDT Adnexal mass CA-125 Routine 12/25/2024 12:05 PM EDT Adnexal mass HISTORICAL LAB Routine 10/04/2011 7:26 PM EDT from Last 3 Months or Most Recently Relevant to Health Maintenance Results * US PELVIS TRANSABDOMINAL PLUS TRANSVAGINAL (01/11/2025 9:38 AM EDT) Anatomical Region Laterality Modality Pelvis, Uterus/Adnexa Ultrasound 01/11/2025 9:38 AM EDT Impressions 01/11/2025 2:38 PM EDT The uterus is surgically absent. The right ovary was not visualized. In the left adnexal region, there is an avascular 5.3 cm cystic mass with posterior acoustic shadowing and areas of hyperechogenicity. The borders are difficult to evaluate. It could be of ovarian origin. Recommend clinical correlation and follow-up ultrasound in 6 to 8 weeks if surgical or alternative imaging is not planned. Narrative 01/11/2025 2:38 PM EDT Procedure: US PELVIS TRANSABDOMINAL AND TRANSVAGINAL 01/11/2025 9:07 AM US Indications: Left Adnexal mass seen on CT scan Comparison: No relevant recent comparisons. Technique: Transabdominal sonography of the pelvis was performed. In addition, transvaginal imaging was performed to better evaluate the adnexae and ovaries. Color Doppler imaging was performed to assess vascularity. No 3-D images were acquired. FINDINGS: Uterus: The uterus is surgically absent. Ovaries: The right ovary is not seen. Right Adnexa: No masses seen. No definite left ovarian tissue could be seen. Left Adnexa: A complex mass is seen. It has areas of hyperechogenicity and posterior acoustic shadowing which limits visualization of the mass and its borders. It approximately measures = 5.31 x 5.25 x 3.99 cm. No vascularity is seen in the mass. Cul de Sac: There is no evidence of free pelvic fluid. Tech Comments: Procedure Note Joaquin Eldridge MD - 01/11/2025 Procedure: US PELVIS TRANSABDOMINAL AND TRANSVAGINAL 01/11/2025 9:07 AM US Indications: Left Adnexal mass seen on CT scan Comparison: No relevant recent comparisons. Technique: Transabdominal sonography of the pelvis was performed. Inaddition, transvaginal imaging was performed to better evaluate theadnexae and ovaries. Color Doppler imaging was performed to assessvascularity. No 3-D images were acquired. FINDINGS: Uterus: The uterus is surgically absent. Ovaries: The right ovary is not seen. Right Adnexa: No masses seen. No definite left ovarian tissue could be seen. Left Adnexa: A complex mass is seen. It has areas of hyperechogenicity andposterior acoustic shadowing which limits visualization of the mass andits borders. It approximately measures = 5.31 x 5.25 x 3.99 cm. Novascularity is seen in the mass. Cul de Sac: There is no evidence of free pelvic fluid. Tech Comments: IMPRESSION: The uterus is surgically absent. The right ovary was not visualized. Inthe left adnexal region, there is an avascular 5.3 cm cystic mass withposterior acoustic shadowing and areas of hyperechogenicity. The bordersare difficult to evaluate. It could be of ovarian origin. Recommendclinical correlation and follow-up ultrasound in 6 to 8 weeks if surgicalor alternative imaging is not planned. Maren Rowley MD IMG US PELVIS Final Result * CA-125 (12/25/2024 12:05 PM EDT) CA 125 18.3 0 - 35 U/mL [facility] Comment: Test Methodology No [id number] Patient results determined by assays using different manufacturers or methods may not be comparable. Blood 12/25/2024 12:0 5 PM EDT 12/25/2024 12:11 PM EDT Maren Rowley MD LAB BLOOD BKR ORDERABLES Tiffanie l Result [address] [address] * (ABNORMAL) Historical Lab (10/04/2011 7:26 PM EDT) Ferr 227 10 - 291 ng/mL [facility] TSH 1.95 0.35 - 5.50 uIU/mL [facility] Sodium 138 136 - 145 mEq/L [facility] Potassium 3.6 3.5 - 5.3 mEq/L [facility] Chloride 103 98 - 107 mEq/L [facility] CO2 24 20 - 31 mEq/L [facility] ANIONGAP 11 4 - 14 [facility] Glucose 92 70 - 99 mg/dL [facility] BUN 16 6 - 20 mg/dL [facility] Creatinine 0.7 0.6 - 1.1 mg/dL [facility] GFR 92 >60 mL/min/1. 73m^2 [facility] Comment:(If patient is Afric an [place], multiply reported result by 1.21) BUN/CRE 24(Abnorm ally H) 12 - 20 [facility] Calcium 9.0 8.4 - 10.2 mg/dL [facility] Corrected Calcium 8.9 8.4 - 10.2 mg/dL [facility] Protein, Total 6.6 6.2 - 8.2 g/dL [facility] ALP 51 0 - 130 U/L [facility] ALB 4.1 3.3 - 4.9 g/dL [facility] ALT (SGPT) 11 0 - 40 U/L [facility] AST (SGOT) 12 0 - 33 U/L [facility] TBili 0.8 0.3 - 1.2 mg/dL [facility] Cholesterol 171 <200 mg/dL [facility] Triglycerides 131 <150 mg/dL [facility] Cholesterol, HDL 52 >40 mg/dL [facility] LDLC 93 <129 mg/dL [facility] Cholesterol/HDL Ratio 3.29 <4.43 [facility] CPK 123 <200 U/L [facility] Iron 28(Abnorm ally L) 35 - 170 mg/dL [facility] TIBC Calc 284 250 - 450 ug/dL [facility] %Sat 10(Abnorm ally L) 20 - 55 % [facility] VitD 22(Abnorm ally L) 30 - 100 ng/mL [facility] hsCRP Cardio 165.4(Abn ormally H) 0.0 - 3.0 mg/L [facility] Comment: Low risk <1mg/L Average risk 1.0-3.0mg/L High risk >3.0mg/L RESULTS VERIFIED BY REASSAYING WITH SAME SAMPLE BY DILUTION. 10/04/2011 8:25 PM, WG PTH, Intact 43 14 - 72 pg/mL [facility] 10/04/2011 7:26 PM EDT 10/04/2011 7:26 PM EDT Narrative [facility] - 10/05/2011 1:15 PM EDT Unless otherwise noted, Testing performed through [facility], [place] [address] Héctor Lepe, PhD, Vision Therapist No Lorenzo Jimenez MD LAB BLOOD ORDERA BLES Edited [place] [address] from Last 3 Months or Most Recently Relevant to Health Maintenance Insurance [employer] MEDICARE PREFERRED HMO REPLACEMENT [employer] MEDIC[employer] PREFERRED HMO REPLACEMENT [employer] Care Teams Heel Wheeler Relationship Specialty Start Date End Date Nicolasa Guo MD [address] [facility] [address] [place] [address] PCP - General Internal Medicine 01/11/25 Izabella Wong FNP [address] [facility] [place] [address] mary Historical LMR Provider 01/23/17 Kathy Mendoza MD [address] [facility], [address] [place] [address] Historical LMR Provider 01/23/17 Rubin Stanton MD [address] [facility] [address] [place] [address] Historical LMR Provider 01/23/17 Lorenzo Jimenez MD [address] [place] [id number] [email or web address] Historical LMR Provider 10/20/16 Additional Source Comments The information contained in this document represents components of the legal health record. It is not the complete legal health record.[facility]
--- OUTSIDE RECORDS SUMMARY | 2025-02-08 16:26 | XMS_ITS | Clinical Summary ---
Author Organization [facility] Address [address] [place] [address] Phone Care Team Providers Care Indirect Sales Representative Name Role Phone Nicolasa Guo MD Primary Care Provider [phone] Allergies Active Allergy Reactions Criticality Noted Date Comments Lisinopril Cough,Other 10/21/2017 Medications cholecalciferol (VITAMIN D-3) 50 mcg (2,000 unit) tablet Take 1 Tablet by mouth daily. 08/19/19 24 Active aspirin 81 mg EC tablet Take 1 Tab by mouth daily. 05/20/19 20 Active blood-glucose meter miscIndications: Primary hypertension Use daily or as directed for monitoring of diabetes. 05/17/19 25 026 Active albuterol HFA (PROAIR HFA ; PROVENTIL HFA ; VENTOLIN HFA) 90 mcg/actuation inhaler Inhale 2 puffs by mouth every 4 (four) hours if needed for wheezing. 6.7 g 3 07/11/19 25 026 Active fluticasone-umec lidinium-vilante rol (TRELEGY ELLIPTA) 100-62.5-25 mcg inhaler Inhale 1 puff (100 mcg total) by mouth 1 (one) time each day. Active furosemide (LASIX) 20 mg tablet Take 1 tablet (20 mg total) by mouth 1 (one) time each day. Active atorvastatin (LIPITOR) 80 mg tablet Take 1 tablet (80 mg total) by mouth 1 (one) time each day. 10/13/19 25 Active clopidogreL (PLAVIX) 75 mg tablet Take 1 tablet (75 mg total) by mouth 1 (one) time each day. 10/13/19 Active potassium chloride (KLOR-CON M10) 10 mEq CR tablet Take 1 tablet (10 mEq total) by mouth 1 (one) time each day. Tablet may be swallowed whole (do not crush/chew/solis ck on) OR broken in half and each half swallowed separately OR dissolved (whole tablet) in ~4 ounces of water (allow ~2 minutes to dissolve, stir well and administer immediately). 30 each 11/12/19 Active magnesium oxide (MAG-OX) 400 mg (241.3 elemental magnesium) tablet Take 1 tablet (400 mg total) by mouth 1 (one) time each day. 90 each 11/12/19 Active meclizine (ANTIVERT) 12.5 mg tablet Take 1 tablet (12.5 mg total) by mouth 3 (three) times a day if needed for dizziness. 90 tablet 3 11/12/19 Active ferrous sulfate 325 mg (65 mg iron) EC tablet Take 1 tablet (325 mg total) by mouth 1 (one) time each day with breakfast. Do not crush, chew, or split. 90 each 11/12/19 25 Active ascorbic acid (VITAMIN C) 250 mg tablet Take 1 tablet (250 mg total) by mouth 1 (one) time each day. 90 each 11/12/19 Active diclofenac (VOLTAREN) 1 % topical gel Apply 2 g topically 4 (four) times a day if needed (pain). 100 g 11/12/19 Active amLODIPine (NORVASC) 10 mg tablet Take 1 tablet (10 mg total) by mouth 1 (one) time each day. 30 each 12/29/19 25 Active losartan (COZAAR) 50 mg tablet Take 1 tablet (50 mg total) by mouth 1 (one) time each day. 30 tablet 2 01/06/20 25 Active omeprazole (PriLOSEC) [address] capsule TAKE 1 CAPSULE(40 MG) BY MOUTH 1 TIME EACH DAY. DO NOT CRUSH OR CHEW 90 capsule 1 01/29/20 Active senna (SENOKOT) 8.6 mg tablet Take 2 tablets (17.2 mg total) by mouth 2 (two) times a day. 10/12/19 25 025 Discontinued omeprazole (PriLOSEC) [address] capsule Take 1 capsule (40 mg total) by mouth 1 (one) time each day. Do not crush or chew. 30 capsule 1 12/29/19 25 025 Discontinued Active Problems Problem Noted Date Diagnosed Date B12 deficiency 01/28/2025 History of anemia 01/28/2025 Osteoarthritis of lower back 11/11/2024 TIA (transient ischemic attack) 10/02/2024 Stroke ([facility] V24, [facility] V28) 10/02/2024 Lab test negative for COVID-19 virus 05/16/2020 Venous insufficiency 04/12/2020 Localized edema 04/07/2020 Overview (01/09/2024): Last Assessment & Plan: She tells me [...] but tells me its normal for her. Cellulitis of calf 04/07/2020 GERD with esophagitis 10/21/2017 Hiatal hernia 10/21/2017 COPD (chronic obstructive pu lmonary disease) ([facility] V24, [facility] V28) 08/27/2017 Hyperlipidemia 08/27/2017 Overview (01/09/2024): Last Assessment & Plan: Last lipid panel 04/28 total cholesterol 189, HDL 66, LDL 99. Continue statin. Hypertension 08/27/2017 Overview (01/09/2024): Last Assessment & Plan: Elevated today but this reading is prior to her medications. She tells me it is usually less than 140 systolically. She understands to call if she notices consistently elevated readings Lung nodule 09/25/2016 Anxiety 09/20/2016 Macular degeneration 09/20/2016 Vitamin D deficiency 09/20/2016 Microcalcifications of the breast 12/28/2015 Encounters Date Type Department Care Team Description 01/28/2025 10:30 AM EDT Office Visit [facility] Hematology Oncology [address] [place] [address] Izabela Tam MD History of anemia (Primary Dx); B12 deficiency 01/18/2025 11:30 AM EDT Office Visit [facility] Hematology Oncology [address] [place] [address] Izabela Tam MD Anemia, unspecified type (Primary Dx) 01/18/2025 9:45 AM EDT Office Visit Pulmonology - [place] [address] [phone] Roderick Lyman MD Chronic obstructive pulmonary disease with emphysema, unspecified emphysema type (CMS/HCC V24, CMS/HCC V28) (Primary Dx); Tobacco abuse 01/18/2025 Results Follow-Up Internal Medicine - [place] [address] [phone] Nicolasa Guo MD 01/12/2025 Telephone Internal Medicine [facility] [address] [phone] Nicolasa Guo MD 12/31/2024 Telephone Internal Medicine [facility] [address] [phone] Jazmin James [place] 2024 Telephone Internal Medicine [facility] [address] [phone] Nicolasa Guo MD 11/25/2024 Telephone Internal Medicine [facility] [address] [address] Nicolasa Guo MD 11/18/2024 Telephone Internal Medicine - [place] [address] [phone] Kathy Cameron MA 11/13/2024 Telephone Internal Medicine - [place] 175 [facility] [address] [place] [address] Kathy Cameron MA 11/11/2024 1:45 PM EDT Office Visit Internal Medicine [facility] 175 [facility] [address] [place] [phone] Nicolasa Guo MD Hospital discharge follow-up (Primary Dx); Cerebrovascular accident (CVA), unspecified mechanism (CMS/[facility] V24, CMS/[facility] V28); Hypertension, unspecified type; Mixed hyperlipidemia; Hypokalemia; Hypomagnesemia; Anemia, unspecified type; Dizziness; Chronic midline low back pain without sciatica; Osteoarthritis of lower back; Pelvic mass in female 11/11/2024 Telephone Internal Medicine [facility] [address] [place] [phone] Kathy Cameron MA 11/10/2024 10:45 AM EDT - 11/10/2024 11:59 PM EDT Hospital Encounter [facility] Xray [address] [place] [phone] Queenie Gutierrez, PAPER REEL OPERATOR Dysphagia, unspecified type Discharge Disposition: Home or Self Care from Last 3 Months Immunizations Immunization Administration Dates Next Due Pfizer SARS-CoV-2 COVID-19, mRNA, LNP-S, preservative free 06/07/2020,05/15/2020 Pneumococcal conjugate 13 va lent (Prevnar 13, PCV13) 2mo and older 06/22/2014 Pneumococcal polysaccharide 23 valent (Pneumovax 23) 2yo and older 05/20/2019 Tdap Tetanus diptheria acell ular pertussis (Boostrix; Adacel) 7yo and older 07/03/2022,03/16/2010 Surgical History Surgery Date Site/Laterality Comments CHOLECYSTECTOMY PROCEDURE: HISTORICAL CHOLECYSTECTOMY HYSTERECTOMY PROCEDURE: HISTORICAL HYSTERECTOMY BACK SURGERY PROCEDURE: HISTORICAL BACK SURGERY; COMMENT: low back CATARACT EXTRACTION PROCEDURE: HISTORICAL CATARACT REMOVAL Medical History Medical History Date Comments Anxiety 09/20/2016 DX:Anxiety COPD (chronic obstructive pu lmonary disease) (CMS/[facility] V24, CMS/[facility] V28) 08/27/2017 DX:COPD (chronic o bstructive pulmonary disease) ([facility]) GERD with esophagitis 10/21/2017 DX:GERD wi th esophagitis Hiatal hernia 10/21/2017 DX:Hiatal hernia Hyperlipidemia 08/27/2017 DX:Hyperlipidemi a Hypertension 08/27/2017 DX:Hypertension Lung nodule 09/25/2016 DX:Lung nodule Macular degeneration 09/20/2016 DX:Macular degeneration Microcalcifications of the breast 12/28/2015 DX:Microcalcifications of the breast Vitamin D deficiency 09/20/2016 DX:Vitamin D deficiency B12 deficiency 01/28/2025 Family History Medical History Relation Name Comments Heart attack Mother Relation Name Status Comments Mother Social History Tobacco Use Types Packs/Day Years Used Date Smoking Tobacco: Every Day Smokeless Tobacco: Never Tobacco Cessation:Ready to Q uit: Not Asked; Counseling Given: Not Answered Comments:Smoking 10 cigs daily Alcohol Use Standard Drinks/Week Comments No 0 [...] Orientation Straight 10/22/2024 9: 59 AM EDT Obstetrics History Last Filed Vital Signs Vital Sign Reading Time Taken Comments Blood Pressure 137/51 01/28/2025 10:32 AM EDT Pulse 83 01/28/2025 10:32 AM EDT Temperature 36.6 C (97.8 F) 01/28/2025 10:32 AM EDT Respiratory Rate 16 01/18/2025 9:52 AM EDT Oxygen Saturation 96% 01/28/2025 10:32 AM EDT Inhaled Oxygen Concentration - - Weight 65.8 kg (145 lb) 01/28/2025 10:32 AM EDT Height 152.4 cm (5') 01/18/2025 9:52 AM EDT Body Mass Index 28.32 01/18/2025 9:52 AM EDT Plan of Treatment Upcoming Encounters Date Type Department Care Team (Late st Contact Info) Description 02/11/2025 1:30 PM EST Office Visit Internal Medicine - [place] 175 [facility] [address] [place] [phone] Nicolasa Guo MD [address] [place] [phone] 04/27/2025 3:30 PM EST Consult Nephrology - [facility] [address] [place] [phone] Austin Johnson MD [address] [place] [address] 09/28/2025 10:15 AM EDT Office Visit [facility] Hematology Oncology [address] [place] [phone] Izabela Tam MD [address] [place] [address] 01/18/2026 10:45 AM EDT Office Visit Pulmonology - [place] [address] [phone] Roderick Lyman MD [address] [place] [phone] Health Maintenance Due Date Last Done Comments Zoster Vaccines (1 of 2) 1988 RSV Immunization Adult Patients (1 - 1-dose 75+ series) 2013 Medicare Annual Wellness Visit 03/16/2022 Osteoporosis Screening (Bone Density Screening) 03/16/2022 Social Influencers of Health Screening 03/16/2022 Depression Screening 04/08/2024 COVID-19 Vaccine ( season) 2024 08/17/2021, 02/09/2021, 06/07/2020, Additional history exists Influenza Vaccine (#1) 2024 , 02/04/2022, 01/19/2020, Additional history exists Falls Risk Assessment 10/11/2025 10/11/2024 Hypertension/CHF/CAD Annual BMP Blood Test 01/18/2026 01/18/2025, 11/03/2024, 11/02/2024, Additional history exists Cholesterol Screening (Lipid Panel) 10/02/2029 10/02/2024, 07/09/2023 DTaP,Tdap,and Td Vaccines (3 - Td or Tdap) 07/03/2032 07/03/2022, 03/16/2010 Pneumococcal Vaccine: 50+ Years Completed 05/20/2019, 06/22/2014, 01/13/2010, Additional history exists HIB Vaccines Aged Out No longer eligi ble based on patient's age to complete this topic HPV Vaccines Aged Out No longer eligi ble based on patient's age to complete this topic Hepatitis A Vaccines Aged Out No long er eligible based on patient's age to complete this topic Hepatitis B Vaccines Aged Out No long er eligible based on patient's age to complete this topic IPV Vaccines Aged Out No longer eligi ble based on patient's age to complete this topic MMR Vaccines Aged Out No longer eligi ble based on patient's age to complete this topic Meningococcal ACWY Vaccine Aged Out N o longer eligible based on patient's age to complete this topic Meningococcal B Vaccine Aged Out No l onger eligible based on patient's age to complete this topic RSV Immunization Patients Under 20 months Aged Out No longer eligible based on patient's age to complete this topic Varicella Vaccines Aged Out No longer eligible based on patient's age to complete this topic Procedures Procedure Name Priority Date/Time Associated Diagnosis Comments ERYTHROPOIETIN Routine 01/18/2025 12:09 PM EDT Anemia, unspecified type RETICULOCYTE COUNT Routine 01/18/2025 12 :09 PM EDT Anemia, unspecified type VITAMIN B12 AND FOLATE Routine 12:09 PM EDT Anemia, unspecified type IRON AND TIBC Routine 01/18/2025 12:09 PM EDT Anemia, unspecified type FERRITIN Routine 01/18/2025 12:09 PM EDT Anemia, unspecified type CBC WITH AUTO DIFFERENTIAL Routine 01/18/2025 10:29 AM EDT Anemia, unspecified type BASIC METABOLIC PANEL Routine 01/18/2025 10:29 AM EDT Hypokalemia CBC AND DIFFERENTIAL Routine 01/18/2025 10:29 AM EDT Anemia, unspecified type MAGNESIUM Routine 01/18/2025 10:29 AM EDT Hypomagnesemia XR BARIUM SWALLOW WITH VIDEO AND SPEECH Routine 11/10/2024 11:16 AM EDT Dysphagia, unspecified type PAPER REEL OPERATOR VIDEOFLUOROSCOPIC SWALLOW STUDY WITH BARIUM Routine 11/10/2024 10:45 AM EDT Dysphagia, unspecified type LIPID PANEL WITH REFLEX TO DIRECT LDL STAT Add-on 10/02/2024 12:09 AM EDT from Last 3 Months or Most Recently Relevant to Health Maintenance Results * (ABNORMAL) Vitamin B12 and folate (01/18/2025 12:09 PM EDT) Pathologist [facility] Vitamin B-12 139(L) 250 - 900 pcg/mL LAB CHEMISTRY METHOD 01/18/2025 2:51 PM EDT [facility] Folate 9.8 2.8 - 17.0 ng/ml LAB CHEMISTRY METHOD 01/18/2025 2:51 PM EDT [facility] Blood Venous blood specimen / Unknown Venipuncture / Unknown 01/18/2025 12:09 PM EDT 01/18/2025 1:30 PM EDT us Izabela Tam MD LAB BLOOD ORDERABLES Final R esult [facility] [address] [place] [address], [place] [phone] * Erythropoietin (01/18/2025 12:09 PM EDT) Pathologist [facility] Erythropoietin 7.2 2.6 - 18.5 mIU/mL 01/21/2025 11:13 PM EDT [facility] Comment: Test performed at [facility], [address], [place] [address] Eveline Dang MD, PhD - Line Up Examiner Blood Venous blood specimen / Unknown Venipuncture / Unknown 01/18/2025 12:09 PM EDT 01/18/2025 1:30 PM EDT Izabela Tam MD LAB BLOOD ORDERABLES Final R esult [facility] [address] [place] [address] * Iron and TIBC (01/18/2025 12:09 PM EDT) [facility] Iron 80 40 - 150 mcg/dL LAB CHEMISTRY METHOD 01/18/2025 2:21 PM EDT [facility] TIBC 323 250 - 450 mcg/dL LAB CHEMISTRY METHOD 01/18/2025 2:21 PM EDT [facility] Iron Saturation 25 15 - 50 % LAB CHEMISTRY METHOD 01/18/2025 2:21 PM EDT [facility] Blood Venous blood specimen / Unknown Venipuncture / Unknown 01/18/2025 12:09 PM EDT 01/18/2025 1:30 PM EDT us Izabela Tam MD LAB BLOOD ORDERABLES Final R esult [facility] [address] [place] [address], [place] [phone] * Reticulocyte count (01/18/2025 12:09 PM EDT) [facility] Retic Ct Abs 0.050 0.030 - 0.090 M/mcL LAB HEMETOLOGY METHOD 01/18/2025 2:03 PM EDT [facility] Retic Ct Pct 1.2 0.7 - 1.7 % LAB HEMETOLOGY METHOD 01/18/2025 2:03 PM EDT [facility] Immature Retic Fract 7.1 2.3 - 15.9 % LAB HEMETOLOGY METHOD 01/18/2025 2:03 PM EDT [facility] Reticulocyte Hemoglobin 35.8 >29.0 pcg LAB HEMETOLOGY METHOD 01/18/2025 2:03 PM EDT [facility] Blood Venous blood specimen / Unknown Venipuncture / Unknown 01/18/2025 12:09 PM EDT 01/18/2025 1:30 PM EDT Izabela Tam MD LAB BLOOD ORDERABLES Final R esult Performing Organization Address City/[facility]/ZIP Co de Phone Number [facility] [address] [place] [address], [place] [phone] * Ferritin (01/18/2025 12:09 PM EDT) Pathologist [facility] Ferritin 113 8 - 252 ng/mL LAB CHEMISTRY METHOD 01/18/2025 2:44 PM EDT [facility] Blood Venous blood specimen / Unknown Venipuncture / Unknown 01/18/2025 12:09 PM EDT 01/18/2025 1:30 PM EDT Izabela Tam MD LAB BLOOD ORDERABLES Final R esult [facility] [address] [place] [address], [place] [phone] * (ABNORMAL) CBC auto differential (01/18/2025 10:29 AM EDT) WBC 9.6 4.8 - 10.8 K/mcL LAB HEMETOLOGY METHOD 01/18/2025 1:51 PM EDT [facility] RBC 4.10 3.80 - 4.80 M/mcL LAB HEMETOLOGY METHOD 01/18/2025 1:51 PM EDT [facility] Hemoglobin 12.7 11.5 - 16.0 g/dL LAB HEMETOLOGY METHOD 01/18/2025 1:51 PM EDT [facility] Hematocrit 39.6 35.0 - 47.0 % LAB HEMETOLOGY METHOD 01/18/2025 1:51 PM EDT [facility] MCV 97.1 79.0 - 98.0 FL LAB [facility]OLOGY [facility]/18[facility]25 [facility] MCH 31.1 27.0 - 32.0 pcg LAB HEMETOLOGY METHOD [facility]/18/2025 1[facility] MCHC 32.1 32.0 - 37.0 g/dL LAB HEMETOLOGY METHOD 01/18/2025 1:[facility] RDW 13.2 11.0 - 15.0 % LAB HEMETOLOGY METHOD 01/18/2025 1:[facility] Platelets 333 130 - 400 K/mcL LAB HEMETOLOGY METHOD 01/18/2025 1:[facility] MPV 9.0 7.0 - 11.0 FL LAB HEMETOLOGY METHOD 01/18/2025 1:51 PM EDT [facility] NRBC 0.0 <1.0 % LAB HEMETOLOGY METHOD 01/18/2025 1:51 PM EDT [facility] NRBC Absolute 0.00 <0.10 K/mcL LAB HEMETOLOGY METHOD 01/18/2025 1:51 PM EDT [facility] Neutrophils Relative 73.3 % LAB HEMETOLOGY METHOD 01/18/2025 1:51 PM EDT [facility] Lymphocytes Relative 16.5 % LAB HEMETOLOGY METHOD 01/18/2025 1:51 PM T [facility] Monocytes Relative 7.2 % LAB HEMETOLOGY METHOD 01/18/2025 1:51 PM [facility] Eosinophils Relative 1.9 % LAB HEMETOLOGY METHOD 01/18/2025 1:51 PM [facility] Basophils Relative 0.7 % LAB HEMETOLOGY METHOD 01/18/2025 1:51 PM [facility] Immature Granulocytes Relative 0.4 % LAB HEMETOLOGY METHOD 01/18/2025 1:51 PM [facility] Neutrophils Absolute 7.02(H) 1.50 - 7.00 K/mcL LAB HEMETOLOGY METHOD 01/18/2025 1:51 PM [facility] Lymphocytes Absolute 1.58 1.00 - 5.00 K/mcL LAB HEMETOLOGY METHOD 01/18/2025 1:51 PM [facility] Monocytes Absolute 0.69 0.20 - 1.00 K/mcL LAB HEMETOLOGY METHOD 01/18/2025 1:51 PM [facility] Eosinophils Absolute 0.18 0.00 - 0.50 K/mcL LAB HEMETOLOGY METHOD 01/18/2025 1:51 PM [facility] Basophils Absolute 0.07 0.00 - 0.20 K/mcL LAB HEMETOLOGY METHOD 01/18/2025 1:51 PM [facility] Immature Granulocytes Absolute 0.04(H) 0.00 - 0.03 K/mcL LAB HEMETOLOGY METHOD 01/18/2025 1:51 PM [facility] Blood Venous blood specimen / Unknown Venipuncture / Unknown 01/18/2025 10:29 AM EDT 01/18/2025 10:29 AM EDT Nicolasa Guo MD LAB BLOOD ORDERABLES Final Resul t Performing Organization Address City/[facility]/ZIP Co de Phone Number [facility] [address] [place] [address], [place] [phone] * Magnesium (01/18/2025 10:29 AM EDT) Magnesium 1.9 1.9 - 2.6 mg/dL LAB CHEMISTRY METHOD 01/18/2025 3:25 PM EDT [facility] Blood Venous blood specimen / Unknown Venipuncture / Unknown 01/18/2025 10:29 AM EDT 01/18/2025 10:29 AM EDT Nicolasa Guo MD LAB BLOOD ORDERABLES Final Resul t Performing Organization Address [facility]/ZIP Co de Phone Number [facility] [address] [place] [address], [place] [phone] * Basic metabolic panel (01/18/2025 10:29 AM EDT) Pathologist [facility] Sodium 141 133 - 145 mmol/L LAB CHEMISTRY METHOD 01/18/2025 3:31 PM [facility] Potassium 3.7 3.5 - 5.5 mmol/L LAB CHEMISTRY METHOD 01/18/2025 3:31 PM [facility] Chloride 105 96 - 110 mmol/L LAB CHEMISTRY METHOD 01/18/2025 3:31 PM [facility] CO2 27 21 - 32 mmol/L LAB CHEMISTRY METHOD 01/18/2025 3:31 PM T [facility] Anion Gap 9 3 - 11 LAB CHEMISTRY METHOD 01/18/2025 3:31 PM [facility] Glucose 85 70 - 100 mg/dL LAB CHEMISTRY METHOD 01/18/2025 3:31 PM [facility] BUN 22 5 - 25 mg/dL LAB CHEMISTRY METHOD 01/18/2025 3:31 PM EDT [facility] Creatinine 0.66 0.50 - 1.10 mg/dL LAB CHEMISTRY METHOD 01/18/2025 3:31 PM EDT [facility] eGFR 86 >=60 mL/min/1. 73m2 LAB CHEMISTRY METHOD 01/18/2025 3:31 PM EDT [facility] Comment:Calculation based on the Chronic Kidney Disease Epidemiology Collaboration (CKD-EPI) equation refit without adjustment for race. BUN/Creatinine Ratio 33.3 LAB CHEMISTRY METHOD 01/18/2025 3:31 PM EDT [facility] Calcium 9.4 8.5 - 10.5 mg/dL LAB CHEMISTRY METHOD 01/18/2025 3:31 PM EDT [facility] Blood Venous blood specimen / Unknown Venipuncture / Unknown 01/18/2025 10:29 AM EDT 01/18/2025 10:29 AM EDT Nicolasa Guo MD LAB BLOOD ORDERABLES Final Resul t [facility] [address] [place] [address], * XR Barium Swallow with Video and Speech (11/10/2024 11:16 AM EDT) Anatomical Region Laterality Modality Head and Neck Radiographic Kristin ging 11/10/2024 11:4 6 AM EDT Impressions 11/10/2024 11:57 AM EDT Small amount of flash laryngeal penetration without roosevelt aspiration on thin barium consistency. Premature spillage on all of the various consistencies. Please refer to the dedicated speech pathologist report for further details as clinically indicated. -------- FINAL REPORT -------- Dictated By: Elza Ruiz Dictated Date: 11/10/2024 11:46 ET Assigned Physician: Joao Horne Reviewed and Electronically Signed By: Joao Horne Signed Date: 11/10/2024 11:57 ET Workstation ID: [id number] Transcribed By: Self Edit Transcribed Date: 11/10/2024 11:52 ET Resident/PA/PAPER PATTERN INSPECTOR: Elza Ruiz Narrative 11/10/2024 11:57 AM EDT CLINICAL HISTORY: Oral dysphagia, recent stroke. STUDY: Modified barium swallow study COMPARISON: No prior modified barium swallow HISTORY: Patient is a 83-year-old female with history of dysphagia. CVA. TECHNIQUE: Multiple sequential fluoroscopic images of the lateral neck were obtained for a swallowing function study. Barium enhanced consistencies of pudding, honey, nectar, thin liquid, semi- solid, and a 13 mm barium tablet were utilized for evaluation. Examination was performed with the speech therapist present. FINDINGS: There was a small amount of flash laryngeal penetration without roosevelt aspiration noted on thin consistency. No evidence for penetration or aspiration of any of the other various consistencies. There is premature spillage noted on all of the various consistencies. 13mm barium tablet was swallowed without difficulty with prompt passage of pill from the esophagus into the stomach. The mandible and maxilla are noted to be edentulous. Air kerma: 1.26 mGy Procedure Note Joao Horne MD - 11/10/2024 CLINICAL HISTORY: Oral dysphagia, recent stroke. STUDY: Modified barium swallow study COMPARISON: No prior modified barium swallow HISTORY: Patient is a 83-year-old female with history of dysphagia. CVA. TECHNIQUE: Multiple sequential fluoroscopic images of the lateral neckwere obtained for a swallowing function study. Barium enhancedconsistencies of pudding, honey, nectar, thin liquid, semi-solid, and a 13mm barium tablet were utilized for evaluation. Examination was performedwith the speech therapist present. FINDINGS: There was a small amount of flash laryngeal penetration without frankaspiration noted on thin consistency. No evidence for penetration oraspiration of any of the other various consistencies. There is prematurespillage noted on all of the various consistencies. 13mm barium tablet wasswallowed without difficulty with prompt passage of pill from theesophagus into the stomach. The mandible and maxilla are noted to be edentulous. Air kerma: 1.26 mGy IMPRESSION: Small amount of flash laryngeal penetration without roosevelt aspiration onthin barium consistency. Premature spillage on all of the various consistencies. Please refer to the dedicated speech pathologist report for furtherdetails as clinically indicated. -------- FINAL REPORT -------- Dictated By: Elza Ruiz Dictated Date: 11/10/2024 11:46 ET Assigned Physician: Joao Horne Reviewed and Electronically Signed By: Joao Horne Signed Date: 11/10/2024 11:57 ET Workstation ID: [id number] Transcribed By: Self Edit Transcribed Date: 11/10/2024 11:52 ET Resident/PA/PAPER PATTERN INSPECTOR: Elza Ruiz us Nguyen DONOHUE IMG FLUOROSCOPY PROCEDURES Fi nal Result * PAPER REEL OPERATOR videofluoroscopic swallow study with barium (11/10/2024 10:45 AM EDT) Queenie Yusuf SLP - 11/10/2024 10:45 AM EDT LEYLA Lee 11/10/2024 3:04 PM Speech/Language Pathology OUTPATIENT MODIFIED BARIUM SWALLOW STUDY/ VIDEOFLUOROSCOPIC EVALUATION OF THE SWALLOW NAME: Audra Tripathi DATE OF : 1940 DATE: 11/10/2024 RECOMMENDATIONS: Recommendations/Treat Solid Consistency: IDDSI Level 7 Easy to Chew Liquid Consistency: Thin liquids Liquid Administration Via: Cup, Straw Recommended Medication Route: PO Recommended Medication Administration: (per patient preference) Supervision: Independent Compensations: Small sips/bites, Alternating liquids and solids TREATMENT RECOMMENDATIONS: Evaluation Only - No Additional Skilled PAPER REEL OPERATOR Needs Indicated at this time. Summary and Impressions: Audra Tirpathi is a 83 y.o. who presents with Mild oral Dysphagia due to recent CVA and edentulous status. Pt recently lost dentures which she was dependent on for eating. Today patient had premature spillage into pharynx and required increased timing for mastication of solids. Flash laryngeal penetration, no tracheal aspiration. Patient indep. cleared pharynx, no residuals noted. Education provided to patient on taking small bites, eating softer foods and taking sips of liquids intermittently during meals. 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 Pt has dx Barretts Esophagus. Diet Prior to this Study: Regular/thin Dysphagia Diagnosis: Mild oral stage dysphagia SUBJECTIVE: Patient arrived in due to long distance, able to indep ambulate to stool. Pt reports recently losing dentures. Dysphagia, unspecified type [R13.10] PAPER REEL OPERATOR VIDEOFLUOROSCOPIC SWALLOW STUDY WITH BARIUM [[id number]] XR BARIUM SWALLOW WITH VIDEO AND SPEECH [[id number]] ALLERGIES: Allergies Allergen Reactions Lisinopril Cough and Other OBJECTIVE Respiratory status: Room air DYSPHAGIA HISTORY/PREVIOUS MBSs None. Pt seen during inpatient stay at [facility], regular/thin liquids recommended. DYSPHAGIA SYMPTOMS REPORTED: Food gets stuck MENTAL STATUS: Alert , Responsive, and Cooperative Oral/Motor: Oral Motor Comments: Oral motor skills WNL for Speech/Swallowing tasks. Fluoroscopy View: Lateral Position during Eval: sitting on stool CONSISTENCIES TRIALED FOOD: IDDSI Level 7 Regular and IDDSI Level 4 Puree LIQUID: IDDSI Level 3 Moderately Thick, IDDSI Level 2 Mildly Thick, and IDDSI Level 0 Thin BARIUM TABLET: whole with water Oral Phase: Oral Phase: Impaired Oral Phase - Comment Oral Phase - Comment: increased timing for mastication, premature spillage of solids down to pyriform sinuses. Pharyngeal Phase: Pharyngeal Phase: Impaired Pharyngeal Phase - Comment Pharyngeal Comment: flash laryngeal penetration, no tracheal aspiration. Cricopharyngeal/Esophageal Phase: Cricopharyngeal Phase: Within Functional Limits 8- Point Penetration Aspiration Scale (PAS) Consistency- (IDDSI level) Score Comments Moderate thick liquids (3) 1- Material does not enter airway. Mildly thick liquids (2) 1- Material does not enter airway. Thin liquids (0) 2- Material enters the airway, remains above the vocal folds, and is ejected from the airway. Flash laryngeal penetration x 1/2 trials only. Puree (4) 1- Material does not enter airway. Regular solids (7) 1- Material does not enter airway. Barium tablet 1- Material does not enter airway. Other: N/A BRIGIDO Stanford, Sherman Whaley, Johnny [place], JANIE Lanier, & JANIE Ricardo. A Penetration-Aspiration Scale. Dysphagia 11:93-98, 1995. EDUCATION Education: Education provided: Reviewed MBS video Swallow strategies Applied Knowledge and Verbal Understanding Queenie Rendon, PAPER REEL OPERATOR 11/10/2024 Please note that swallowing is a dynamic process and the skills reflected during this brief assessment may not necessarily represent the patient's swallowing function during an entire meal. Ongoing clinical judgment is strongly advised. us Nguyen DONOHUE PAPER REEL OPERATOR ORDERABLES Final Result * (ABNORMAL) Lipid panel with reflex to direct LDL (10/02/2024 12:09 AM EDT) Cholesterol 215(H) 0 - 200 mg/dL LAB CHEMISTRY METHOD 10/02/2024 2:20 AM EDT [facility] Triglycerides 136 0 - 150 mg/dL LAB CHEMISTRY METHOD 10/02/2024 2:20 AM EDT [facility] HDL 61 >=40 mg/dL LAB CHEMISTRY METHOD 10/02/2024 2:20 AM EDT [facility] LDL Calculated 127(H) 0 - 100 mg/dL LAB CHEMISTRY METHOD 10/02/2024 2:20 AM EDT [facility] VLDL Cholesterol Brain 27.2 mg/dL LAB CHEMISTRY METHOD 10/02/2024 2:20 AM EDT [facility] Non HDL Chol. (LDL+VLDL) 154(H) <145 mg/dL LAB CHEMISTRY METHOD 10/02/2024 2:20 AM EDT [facility] Chol/HDL Ratio 3.5 0.0 - 4.4 LAB CHEMISTRY METHOD 10/02/2024 2:20 AM T [facility] Blood Venous blood specimen / Unknown Venipuncture / Unknown 10/02/2024 12:09 AM EDT 10/02/2024 1:51 AM EDT us Sofía Guerrier MD LAB BLOOD ORDERABLES Fin al Result [facility] [address] [place] [address], from Last 3 Months or Most Recently Relevant to Health Maintenance Insurance [employer] Advance Directives Documents on File Type Date Recorded Patient Coat Joiner Expl anation Advance Directives and Living Will 10/05/2024 3:28 PM Shant Tripathi Health Care Proxy * No CPR/Do Not Intubate (Latest Code Status on File) Date Activated Date Inactivated Comments 10/02/2024 9:32 AM 10/11/2024 5:15 PM This code sta tus was ascertained in the following way: Code status discussion: discussion with patient To update the patient's code status, place a code status order. Do not modify or discontinue any currently active code status orders. * Full Code - Default Date Activated Date Inactivated Comments 10/02/2024 5:29 AM 10/02/2024 9:32 AM This is orde r is used when code status has not been discussed with the patient, or code status is otherwise unknown/unconfirmed To update the patient's code status, place a code status order. Do not modify or discontinue any currently active code status orders. Healthcare Agents on File Name Relationship Healthcare Agent Relationship Communication Shant Sequeira Health Care Agent Care Teams Indirect Sales Representative Relationship Specialty Start Date End Date Nicolasa Guo MD 175 [facility] [address] [place] [address] [facility] - General 08/14/23
--- OUTSIDE RECORDS SUMMARY | 2025-02-08 16:26 | XMS_ITS | Encounter Summary ---
Author Organization [facility] Address [address] [place] [address] Care Team Providers Care Top Case Assembler Name Role Phone Nicolasa Guo MD Primary Care Provider [phone] Encounter Details Date Type Department Care Team (Late Contact Info) Description 11/03/2024 Lab Requisition [facility] - Main Lab [address] [facility] [place] [phone] Yobani Chapa MD [address] [place] [address] Hypokalemia; Hypomagnesemia Social History Tobacco Use Types Packs/Day Years [...] PM EST Office Visit Internal Medicine - [place] 175 [facility] 200 [place] [phone] Nicolasa Guo MD [address] [place] [phone] 04/27/2025 3:30 PM EST Consult Nephrology - [facility] [address] [place] [address] Austin Johnson MD [address] [place] [address] 09/28/2025 10:15 AM EDT Office Visit [facility] Hematology Oncology [address] [place] [phone] Izabela Tam MD [address] [place] [address] 01/18/2026 10:45 AM EDT Office Visit Pulmonology - [place] [address] [phone] Roderick Lyman MD [address] [place] [phone] documented as of this encounter Procedures Procedure Name Priority Date/Time Associated Diagnosis Comments MAGNESIUM Routine 11/03/2024 5:01 AM EDT Hypokalemia Hypomagnesemia BASIC METABOLIC PANEL Routine 11/03/2024 5:01 AM EDT Hypokalemia Hypomagnesemia documented in this encounter Results * (ABNORMAL) Magnesium (11/03/2024 5:01 AM EDT) Magnesium 1.6(L) 1.9 - 2.6 mg/dL LAB CHEMISTRY METHOD 11/03/2024 9:10 AM EDT [facility] Blood Venous blood specimen / Unknown Venipuncture / Unknown 11/03/2024 5:01 AM EDT 11/03/2024 8:19 AM EDT us Yobani Chapa MD LAB BLOOD ORDERABLES Final Resul t [facility] [address] [place] [address], [place] [phone] * (ABNORMAL) Basic metabolic panel (11/03/2024 5:01 AM EDT) Sodium 142 133 - 145 mmol/L LAB CHEMISTRY METHOD 11/03/2024 9:10 AM [facility] Potassium 3.4(L) 3.5 - 5.5 mmol/L LAB CHEMISTRY METHOD 11/03/2024 9:10 AM [facility] Chloride 107 96 - 110 mmol/L LAB CHEMISTRY METHOD 11/03/2024 9:10 AM [facility] CO2 28 21 - 32 mmol/L LAB CHEMISTRY METHOD 11/03/2024 9:10 AM [facility] Anion Gap 7 3 - 11 LAB CHEMISTRY METHOD 11/03/2024 9:10 AM [facility] Glucose 74 70 - 100 mg/dL LAB CHEMISTRY METHOD 11/03/2024 9:10 AM [facility] BUN 13 5 - 25 mg/dL LAB CHEMISTRY METHOD 11/03/2024 9:10 AM [facility] Creatinine 0.58 0.50 - 1.10 mg/dL LAB CHEMISTRY METHOD 11/03/2024 9:10 AM [facility] eGFR 89 >=60 mL/min/1. 73m2 LAB CHEMISTRY METHOD 11/03/2024 9:10 AM [facility] Comment:Calculation based on the Chronic Kidney Disease Epidemiology Collaboration (CKD-EPI) equation refit without adjustment for race. BUN/Creatinine Ratio 22.4 LAB CHEMISTRY METHOD 11/03/2024 9:10 AM [facility] Calcium 8.6 8.5 - 10.5 mg/dL LAB CHEMISTRY METHOD 11/03/2024 9:10 AM EDT [facility] Blood Venous blood specimen / Unknown Venipuncture / Unknown 11/03/2024 5:01 AM EDT 11/03/2024 8:19 AM EDT us Yobani Chapa MD LAB BLOOD ORDERABLES Final Resul t [facility] [address] [place] [address], documented in this encounter Visit Diagnoses Diagnosis Hypokalemia Hypopotassemia Hypomagnesemia Disorders of magnesium metabolism documented in this encounter Care Teams Top Case Assembler Relationship Specialty Start Date End Date Nicolasa Guo MD [address] [phone] PCP - General 08/14/23 documented as of this encounter
--- OUTSIDE RECORDS SUMMARY | 2025-02-08 16:26 | XMS_ITS | Encounter Summary ---
Author Organization [facility] Address [address] [place] [address] Care Team Providers Care Heater Operator Name Role Phone Nicolasa Guo MD Primary Care Provider [phone] Encounter Details Date Type Department Care Team (Late Contact Info) Description 10/22/2024 Lab Requisition [facility] - Main Lab 299 [facility] [place] [address] Yobani Chapa MD [address] [place] [address] Essential (primary) hypertension Social History Tobacco Use Types Packs/Day Years [...] PM EST Office Visit Internal Medicine - [place] 175 [facility] [address] [place] [phone] Nioclasa Guo MD [address] [place] [phone] 04/27/2025 3:30 PM EST Consult Nephrology - [facility] 305 [facility] [place] [address] Austin Johnson MD [address] [phone] 09/28/2025 10:15 AM EDT Office Visit [facility] Hematology Oncology [address] [place] [phone] Izabela Tam MD [address] [place] [address] 01/18/2026 10:45 AM EDT Office Visit Pulmonology - [place] [address] [phone] Roderick Lyman MD [address] [place] [phone] documented as of this encounter Procedures Procedure Name Priority Date/Time Associated Diagnosis Comments BASIC METABOLIC PANEL Routine 10/22/2024 8:01 AM EDT Essential (primary) hypertension documented in this encounter Results * (ABNORMAL) Basic metabolic panel (10/22/2024 8:01 AM EDT) Sodium 138 133 - 145 mmol/L LAB CHEMISTRY METHOD 10/22/2024 10:45 AM EDT [facility] Potassium 3.0(L) 3.5 - 5.5 mmol/L LAB CHEMISTRY METHOD 10/22/2024 10:45 AM EDT [facility] Chloride 102 96 - 110 mmol/L LAB CHEMISTRY METHOD 10/22/2024 10:45 AM EDT [facility] CO2 26 21 - 32 mmol/L LAB CHEMISTRY METHOD 10/22/2024 10:45 AM [facility] Anion Gap 10 3 - 11 LAB CHEMISTRY METHOD 10/22/2024 10:45 AM [facility] Glucose 105(H) 70 - 100 mg/dL LAB CHEMISTRY METHOD 10/22/2024 10:45 AM [facility] BUN 14 5 - 25 mg/dL LAB CHEMISTRY METHOD 10/22/2024 10:45 AM T [facility] Creatinine 0.69 0.50 - 1.10 mg/dL LAB CHEMISTRY METHOD 10/22/2024 10:45 AM [facility] eGFR 85 >=60 mL/min/1. 73m2 LAB CHEMISTRY METHOD 10/22/2024 10:45 AM [facility] Comment:Calculation based on the Chronic Kidney Disease Epidemiology Collaboration (CKD-EPI) equation refit without adjustment for race. BUN/Creatinine Ratio 20.3 LAB CHEMISTRY METHOD 10/22/2024 10:45 AM [facility] Calcium 8.8 8.5 - 10.5 mg/dL LAB CHEMISTRY METHOD 10/22/2024 10:45 AM [facility] Blood Venous blood specimen / Unknown Venipuncture / Unknown 10/22/2024 8:01 AM EDT 10/22/2024 9:24 AM EDT us Yobani Chapa MD LAB BLOOD ORDERABLES Final Resul t [facility] [address] [place] [address], documented in this encounter Visit Diagnoses Diagnosis Essential (primary) hypertension Unspecified essential hypertension documented in this encounter Care Teams Heater Operator Relationship Specialty Start Date End Date Nicolasa Guo MD [address] [phone] PCP - General 08/14/23 documented as of this encounter
--- OUTSIDE RECORDS SUMMARY | 2025-02-08 16:26 | XMS_ITS | Encounter Summary ---
Author Organization [facility] Address [address] [place] [address] Care Team Providers Care Hosiery Knitter Name Role Phone Nicolasa Guo MD Primary Care Provider [phone] Encounter Details Date Type Department Care Team (Late Contact Info) Description 01/18/2025 Results Follow-Up Internal Medicine [address] [phone] Nicolasa Guo MD [address] [place] [phone] Social History Tobacco Use Types Packs/Day Years Used Date Smoking Tobacco: Every Day Smokeless Tobacco: Never Comments:Smoking 10 cigs juno ly Alcohol Use Standard Drinks/Week Comments No 0 [...] 1:30 PM EST Office Visit Internal Medicine [address] [phone] Nicolasa Guo MD [address] [place] [phone] 04/27/2025 3:30 PM EST Consult Nephrology - [facility] [address] [place] [address] Austin Johnson MD [address] [phone] 09/28/2025 10:15 AM EDT Office Visit [facility] Hematology Oncology [address] [place] [phone] Izabela Tam MD [address] [place] [address] 01/18/2026 10:45 AM EDT Office Visit Pulmonology - [place] [address] [phone] Roderick Lyman MD [address] [place] [phone] documented as of this encounter Visit Diagnoses Not on filedocumented in this encounter Care Teams Hosiery Knitter Relationship Specialty Start Date End Date Nicolasa Guo MD [address] [phone] PCP - General 08/14/23 documented as of this encounter
--- OUTSIDE RECORDS SUMMARY | 2025-02-08 16:26 | XMS_ITS ---
Author Name [facility] Organization Unknown Encounters Encounter Type Encounter Reason Primary Diagnosis Location Date Ambulatory [facility] 01/17/2024 Care Team Organization Name Specialty Phone Email Start Date End Da [facility] 11/25/2024 [facility] 2024 [facility] AMIE SIMON Primary Care 02/13/2022 11/25/19 24
--- OUTSIDE RECORDS SUMMARY | 2025-02-08 16:26 | XMS_ITS | Encounter Summary ---
Author Organization [facility] Address [address] [place] [address] Care Team Providers Care Ortho Nurse Name Role Phone Nicolasa Guo MD Primary Care Provider Encounter Details Date Type Department Care Team (Late Contact Info) Description 10/12/2024 Lab Requisition [facility] - Main Lab 299 [facility] [place] [address] Yobani Chapa MD [address] [place] [address] Essential (primary) hypertension Social History Tobacco Use [...] PM EST Office Visit Internal Medicine - [place] 175 [facility] [address] [place] [phone] Nicolasa Guo MD [address] [place] [phone] 04/27/2025 3:30 PM EST Consult Nephrology - [facility] [address] [place] [address] Austin Johnson MD [address] [phone] 09/28/2025 10:15 AM EDT Office Visit [facility] Hematology Oncology [address] [place] [phone] Izabela Tam MD [address] [place] [address] 01/18/2026 10:45 AM EDT Office Visit Pulmonology - [place] [address] [phone] Roderick Lyman MD [address] [place] [phone] documented as of this encounter Procedures Procedure Name Priority Date/Time Associated Diagnosis Comments COMPLETE BLOOD COUNT Routine 10/12/2024 8:12 AM EDT Essential (primary) hypertension BASIC METABOLIC PANEL Routine 10/12/2024 8:12 AM EDT Essential (primary) hypertension documented in this encounter Results * (ABNORMAL) Basic metabolic panel (10/12/2024 8:12 AM EDT) Sodium 137 133 - 145 mmol/L LAB CHEMISTRY METHOD 10/12/2024 11:59 AM EDT [facility] Potassium 3.5 3.5 - 5.5 mmol/L LAB CHEMISTRY METHOD 10/12/2024 11:59 AM EDT [facility] Chloride 103 96 - 110 mmol/L LAB CHEMISTRY METHOD 10/12/2024 11:59 AM [facility] CO2 26 21 - 32 mmol/L LAB CHEMISTRY METHOD 10/12/2024 11:59 AM [facility] Anion Gap 8 3 - 11 LAB CHEMISTRY METHOD 10/12/2024 11:59 AM [facility] Glucose 81 70 - 100 mg/dL LAB CHEMISTRY METHOD 10/12/2024 11:59 AM [facility] BUN 12 5 - 25 mg/dL LAB CHEMISTRY METHOD 10/12/2024 11:59 AM [facility] Creatinine 0.40(L) 0.50 - 1.10 mg/dL LAB CHEMISTRY METHOD 10/12/2024 11:59 AM [facility] eGFR 97 >=60 mL/min/1. 73m2 LAB CHEMISTRY METHOD 10/12/2024 11:59 AM [facility] Comment:Calculation based on the Chronic Kidney Disease Epidemiology Collaboration (CKD-EPI) equation refit without adjustment for race. BUN/Creatinine Ratio 30.0 LAB CHEMISTRY METHOD 10/12/2024 11:59 AM [facility] Calcium 8.8 8.5 - 10.5 mg/dL LAB CHEMISTRY METHOD 10/12/2024 11:59 AM [facility] Blood Venous blood specimen / Unknown Venipuncture / Unknown 10/12/2024 8:12 AM EDT 10/12/2024 10:44 AM EDT us Yobani Chapa MD LAB BLOOD ORDERABLES Final Resul t [facility] [address] [place] [address], * Complete blood count (10/12/2024 8:12 AM EDT) WBC 8.9 4.8 - 10.8 K/mcL LAB HEMETOLOGY METHOD 10/12/2024 11:45 AM [facility] RBC 4.00 3.80 - 4.80 M/mcL LAB HEMETOLOGY METHOD 10/12/2024 11:45 AM [facility] Hemoglobin 12.3 11.5 - 16.0 g/dL LAB HEMETOLOGY METHOD 10/12/2024 11:45 AM [facility] Hematocrit 36.6 35.0 - 47.0 % LAB HEMETOLOGY METHOD 10/12/2024 11:45 AM [facility] MCV 92.4 79.0 - 98.0 FL LAB HEMETOLOGY METHOD 10/12/2024 11:45 AM [facility] MCH 31.1 27.0 - 32.0 pcg LAB HEMETOLOGY METHOD 10/12/2024 11:45 AM [facility] MCHC 33.6 32.0 - 37.0 g/dL LAB HEMETOLOGY METHOD 10/12/2024 11:45 AM [facility] RDW 11.8 11.0 - 15.0 % LAB HEMETOLOGY METHOD 10/12/2024 11:45 AM [facility] Platelets 311 130 - 400 K/mcL LAB HEMETOLOGY METHOD 10/12/2024 11:45 AM [facility] MPV 9.4 7.0 - 11.0 FL LAB HEMETOLOGY METHOD 10/12/2024 11:45 AM [facility] NRBC 0.0 <1.0 % LAB HEMETOLOGY METHOD 10/12/2024 11:45 AM [facility] NRBC Absolute 0.00 <0.10 K/mcL LAB HEMETOLOGY METHOD 10/12/2024 11:45 AM [facility] Blood Venous blood specimen / Unknown Venipuncture / Unknown 10/12/2024 8:12 AM EDT 10/12/2024 10:44 AM EDT Yobani Chapa MD LAB BLOOD ORDERABLES Final Resul t [facility] [address] [place] [address], documented in this encounter Visit Diagnoses Diagnosis Essential (primary) hypertension Unspecified essential hypertension documented in this encounter Care Teams Ortho Nurse Relationship Specialty Start Date End Date Nicolasa Guo MD [address] [place] [phone] PCP - General 08/14/23 documented as of this encounter
== END 2025-02-08 15:29 | disposition home or self-care (01) ==
LOC: HO.HSM 15:03
PROVIDERS: PCP Student in an Organized Health Care Education/Training Program; Visit Provider Psychiatry & Neurology Neurology
DX: I63.30 Cerebral infarction due to thrombosis of unspecified cerebral artery (principal); I67.2 Cerebral atherosclerosis; F03.90 Unspecified dementia, unspecified severity, without behavioral disturbance, psychotic disturbance, mood disturbance, and anxiety; R26.89 Other abnormalities of gait and mobility
CPT/HCPCS: 99204

== ENCOUNTER → 2025-02-08 15:02 | Outpatient (BNVA) | payer MEDICARE, SELFPAY | PROVIDERS: PCP Student in an Organized Health Care Education/Training Program; Visit Provider Psychiatry & Neurology Neurology | DX: I69.354 Hemiplegia and hemiparesis following cerebral infarction affecting left non-dominant side (principal); M54.9 Dorsalgia, unspecified; G89.29 Other chronic pain; I67.2 Cerebral atherosclerosis; I10 Essential (primary) hypertension; F03.90 Unspecified dementia, unspecified severity, without behavioral disturbance, psychotic disturbance, mood disturbance, and anxiety; R26.89 Other abnormalities of gait and mobility | CPT/HCPCS: 99202 ==